=== PATIENT | male | born 1960 | race Caucasian/White ===

== ENCOUNTER 2019-12-09 04:55 | Inpatient (IN) | payer BC ==
[~2019-12-09] VITALS: Ht 177.8 cm; Wt 89.5 kg
[2019-12-09] MEDS ORDERED: ONDANSETRON HCL INJ 2MG/ML 2ML 2 MG/ML VIAL IV STA ×2 (04:59→19:54)
[2019-12-09] MEDS ORDERED: PANTOPRAZOLE 40 MG 10ML VIAL IV STA ×2 (04:59→06:56)
[2019-12-09] MEDS ORDERED: MORPHINE SULFATE 2 MG/ML SYR 1ML IV STA (04:59)
[2019-12-09] MEDS ORDERED: SODIUM CHLORIDE 0.9% 1000ML 1,000 ML IV ONE ×2 (05:00→06:15)
[2019-12-09] MEDS ORDERED: ASPIRIN 81 MG CHEW TAB PO ONE (05:00)
[2019-12-09 05:12] LABS: BASOPHILS # (AUTO) 0.1 (0.0-0.1); BASOPHILS % 0.5 % (0.0-1.0); EOSINOPHILS # (AUTO) 0.2 (0.0-0.4); EOSINOPHILS % 0.9 % (0.0-6.0); HEMATOCRIT 50.4 % (38.2-49.6); HEMOGLOBIN 17.7 g/dL (14.0-18.0); LYMPHOCYTES # (AUTO) 3.2 (1.0-3.2); LYMPHOCYTES % 18.5 % (18.0-39.1); MEAN CORPUSCULAR HEMOGLOBIN 31.3 pg (28-32); MEAN CORPUSCULAR HGB CONC 35.1 g/dL (31-35); NEUTROPHILS # (AUTO) 12.8 (2.1-6.9); NEUTROPHILS % 73.7 % (38.7-80.0); PLATELET COUNT 213 x10e3/uL (140-360); RED BLOOD COUNT 5.66 x10e6/uL (4.3-5.7)
[2019-12-09 05:40] LABS: ALBUMIN 4.3 g/dL (3.5-5.0); ALBUMIN/GLOBULIN RATIO 1.3 (0.8-2.0); ANION GAP 13.1 mmol/L (8-16); BILIRUBIN,URINE 1+ (NEGATIVE); CLARITY,URINE SL CLOUDY (CLEAR); COLOR,URINE YELLOW (YELLOW); CREATININE, SERUM 1.43 mg/dL (0.72-1.25); KETONES,URINE NEGATIVE (NEGATIVE); LEUKOCYTE ESTERASE ,URINE NEGATIVE (NEGATIVE); NITRITE,URINE NEGATIVE (NEGATIVE); POTASSIUM 4.1 mmol/L (3.5-5.1); PROTEIN,URINE DIPSTICK 2+ (NEGATIVE); URINE UROBILINOGEN 0.2 mg/dL (0.2 - 1)
[2019-12-09 05:44] LABS: AMYLASE 4112 U/L (25-125)
[2019-12-09 05:46] LABS: CREATINE KINASE MB 1.7 ng/mL (0-5.0)
[2019-12-09 05:50] LABS: BACTERIA,URINE MANY /HPF; EPITHELIAL CELLS,URINE RARE /LPF; RBC,URINE 0-5 /HPF (0-5)
[2019-12-09 05:51] LABS: MUCUS,URINE MANY (RARE)
[2019-12-09] MEDS ORDERED: HYDROMORPHONE 1MG/1ML INJ IV STA ×2 (06:07→19:54)
[2019-12-09] MEDS ORDERED: SODIUM CHLORIDE 0.9% 50ML 50 ML ONE (06:12)
[2019-12-09] MEDS ORDERED: IOPAMIDOL 370 MG/ML 200 ML INFUS..BTL INJ ONE (06:12)
[2019-12-09] MEDS ORDERED: SODIUM CHLORIDE 0.9% 1000ML 1,000 ML ONE (06:13)
--- NOTE | 2019-12-09 06:40 | Diagnostic Imaging Report ---
EXAM: CT Abdomen and Pelvis WITH contrast INDICATION: Abdominal pain, vomiting COMPARISON: None. TECHNIQUE: Abdomen and pelvis were scanned utilizing a multidetector helical scanner from the lung base to the pubic symphysis after administration of IV contrast. Coronal and sagittal reformations were obtained. Routine protocol was performed. Scan was performed when during portal venous phase. IV CONTRAST: 100 mL of Isovue 370 ORAL CONTRAST: None COMPLICATIONS: None RADIATION DOSE: Total DLP: 569 mGy*cm Estimated effective dose: (DLP x 0.015 x size factor) mSv CTDIvol has been reviewed. It is below the limits set by the Radiation Protocol Committee (RPC). Dose modulation, iterative reconstruction, and/or weight based adjustment of the mA/kV was utilized to reduce the radiation dose to as low as reasonably achievable. FINDINGS: LINES and TUBES: None. LOWER THORAX: Bibasilar atelectasis. HEPATOBILIARY: No focal hepatic lesions. No biliary ductal dilation. GALLBLADDER: No radio-opaque stones or sludge. No wall thickening. SPLEEN: No splenomegaly. PANCREAS: Mild peripancreatic fat stranding. No focal masses or ductal dilatation. ADRENALS: No adrenal nodules KIDNEYS/URETERS: Kidneys enhance symmetrically. No hydronephrosis. No solid mass lesions. Bilateral renal simple cysts, largest is in the left kidney, measures 7.8 cm. No stones. GI TRACT: No abnormal distention, wall thickening, or evidence of bowel obstruction. Appendix is normal. PELVIC ORGANS/BLADDER: Unremarkable. LYMPH NODES: No lymphadenopathy. VESSELS: Unremarkable. PERITONEUM / RETROPERITONEUM: Trace free fluid about the spleen and layering along the paracolic gutters. No free air. BONES: Bilateral inferior L4 pars defects with mild anterolisthesis of L4 on L5. SOFT TISSUES: Unremarkable. IMPRESSION: 1. Acute interstitial edematous pancreatitis. Trace free fluid about the spleen and layering along the paracolic gutters. 2. Colonic diverticulosis without diverticulitis. 3. Bilateral inferior L4 pars defects with mild anterolisthesis of L4 on L5. Signed by: Bubba Machado DO on 12/09/2019 6:36 AM
--- NOTE | 2019-12-09 07:04 | NUR ---
Report to Dick
--- OUTSIDE RECORDS SUMMARY | 2019-12-09 07:07 | XMS REPORT ---
Author Author [facility] Address Unknown Phone Unavailable Care Team Providers Care Communications Professional Name Role Phone Mat DONAHUE Unavailable Unavailable Problems This patient has no known problems. Allergies, Adverse Reactions, Alerts This patient has no known allergies or adverse reactions. Medications This patient has no known medications. Results Test Description Test Time Test Comments Text Results Atomic Results Result Comments CT ABDOMEN/PELVIS W 2019-12-09 06:31:00 [place] [address] Patient Name: KAYCE BROWN MR #: [id number] : 1960 Age/Sex: 59/M Req #: [id number] Adm Physician: Ordered by: GAYLE DONAHUE MD Report #: [id number] Location: ER Room/Bed: Procedure: [id number] CT/CT ABDOMEN/PELVIS W Exam Date: 12/09/19 Exam Time: 0600 REPORT STATUS: Signed EXAM: CT Abdomen and Pelvis WITH contrast INDICATION: Abdominal pain, vomiting COMPARISON: None. TECHNIQUE: Abdomen and pelvis were scanned utilizing a multidetector helical scanner from the lung base to the pubic symphysis after administration of IV contrast. Coronal and sagittal reformations were obtained. Routine protocol was performed. Scan was performed when during portal venous phase. IV CONTRAST: 100 mL of Isovue 370 ORAL CONTRAST: None COMPLICATIONS: None RADIATION DOSE: Total DLP: 569 mGy*cm Estimated effective dose: (DLP x 0.015 x size factor) mSv CTDIvol has been reviewed. It is below the limits set by the Radiation Protocol Committee (RPC). Dose modulation, iterative reconstruction, and/or weight based adjustment of the mA/kV was utilized to reduce the radiation dose to as low as reasonably achievable. FINDINGS: LINES and TUBES: None. LOWER THORAX: Bibasilar atelectasis. HEPATOBILIARY: No focal hepatic l esions. No biliary ductal dilation. GALLBLADDER: No radio-opaque stones or sludge. No wall thickening. SPLEEN: No splenomegaly. PANCREAS: Mild peripancreatic fat stranding. No focal masses or ductal dilatation. ADRENALS: No adrenal nodules KIDNEYS/URETERS: Kidneys enhance symmetrically. No hydronephrosis. No solid mass lesions. Bilateral renal simple cysts, largest is in the left kidney, measures 7.8 cm. No stones. GI TRACT: No abnormal distention, wall thickening, or evidence of bowel obstruction. Appendix is normal. PELVIC ORGANS/BLADDER: Unremarkable. LYMPH NODES: No lymphadenopathy. VESSELS: Unremarkable. PERITONEUM / RETROPERITONEUM: Trace free fluid about the spleen and layering along the paracolic gutters. No free air. BONES: Bilateral inferior L4 pars defects with mild anterolisthesis of L4 on L5. SOFT TISSUES: Unremarkable. IMPRESSION: 1. Acute interstitial edematous pancreatitis. Trace free fluid about the spleen and layering along the paracolic gutters. 2. Colonic diverticulosis without diverticulitis. 3. Bilateral inferior L4 pars defects with mild anterolisthesis of L4 on L5. Signed by: Bubba Machado DO on 12/09/2019 6:36 AM Dictated By: BUBBA MACHADO DO 5 Transcribed By: BRIGETTE on 12/09/19635 COPY TO: GAYLE DONAHUE MD
[2019-12-09 07:11] LABS: LIPASE 5465 U/L (8-78)
[2019-12-09 07:29] LABS: CHOL/HDL RATIO 5.7 (3.9-4.7)
[2019-12-09] MEDS: LACTATED RINGER'S 1,000 ML IV SCH ×6 (07:33→23:45)
[2019-12-09] MEDS: METRONIDAZOLE 500MG/NS 100ML 100 ML IV SCH ×4 (07:33→23:57)
[2019-12-09] MEDS ORDERED: MEROPENEM 1GM 100 ML IV SCH ×2 (08:00→11:30)
[2019-12-09 09:34] VITALS: BP 188/110
--- NOTE | 2019-12-09 09:58 | NUR ---
H&P cc: abdominal pain HPI: 59yoM, PCP ---, developed abdominal pain, found to have acute pancreatitis and UTI. Pt states only drinks alcohol on weekend. Imaging no gallstones by CT. PMH: HTN PSHx: none Allergies; see emr fh/Sh: ; no cigs; occ etoh meds; see MAR ROS: no f/c/s/SKINNER/cp/sob/skin rash/dizziness/leg edema/focal limb weakness v/s revd PE: tired appearing anicteric ns1s2 mod bs soft nd; epigastrium tender no e/t skin dry flat affect a&ox3; gonzalez labs/meds revd A/P: 59yoM Acute pancreatitis- IVF; IV abx; NPO. HTN- treat AKIRA- IVF UTI- IV merrem Diverticulosis- npo at this time Overweight- screen for DM BMI 28 Hyperglycemia- screen for DM HLD- will need treatment Prop: scd; pepcid dispo: f/u labs; IVF; NPO: Mariano Andres MD, PhD.
[2019-12-09 10:15] VITALS: BP 188/110
--- NOTE | 2019-12-09 10:15 | NUR ---
PT FROM ER. REPORT RECEIVED FROM ROCCO SOLIZ RN. PT AMBULATED TO BED WITH MINIMAL ASSISTANCE. ASSESSED AT THIS TIME. ABDOMEN TENDER TO TOUCH. BOWEL SOUNDS PRESENT ON AUSCULTATION. NO PARDO. IV TO LEFT AC INFUSING WELL, SET UP TO IV PUMP. PATIENT ASSESSMENT OTHERWISE UNREMARKABLE. PATIENT IN ORIENTATED TO ROOM AND SURROUNDINGS. INSTRUCTED TO CALL FOR ASSISTANCE IF NEEDS TO GET OUT OF BED. SEE CHART FOR DETAILS.
[2019-12-09] MEDS: HYDROMORPHONE 1MG/1ML INJ IV PRN ×2 (10:40→17:23)
[2019-12-09] MEDS: ONDANSETRON HCL INJ 2MG/ML 2ML 2 MG/ML VIAL IV PRN ×3 (10:59→22:37)
[2019-12-09 11:07] VITALS: BP 195/105
--- NOTE | 2019-12-09 14:30 | NUR ---
MESSAGE LEFT FOR DR. CARRERA ON VOICE MAIL REGARDING PATIENT PAIN MANAGEMENT AND NAUSEA. ALSO ELEVATED BP RELATED TO PAIN.
--- NOTE | 2019-12-09 16:44 | NUR ---
VOICE MESSAGE LEFT FOR DR CARRERA REGARDING PAIN MANAGEMENT AND NAUSEA AND ELEVATED BLOOD PRESSURE.
[2019-12-09 16:49] VITALS: BP 181/106
[2019-12-09] MEDS: FAMOTIDINE 20 MG/2 ML VIAL IV SCH (17:23)
[2019-12-09] MEDS ORDERED: HYDRALAZINE HCL 20 MG/ML VIAL IV STA (19:54)
[2019-12-09 20:00] VITALS: BP 199/115
[2019-12-09] MEDS ORDERED: METOCLOPRAMIDE HCL 10 MG/2ML VIAL IV ONE (20:00)
[2019-12-09] MEDS ORDERED: HYDROMORPHONE 1MG/1ML INJ IV PRN (20:00)
[2019-12-09 20:45] LABS: BASOPHILS % 0.2 % (0.0-1.0); EOSINOPHILS # (AUTO) 0.1 (0.0-0.4); EOSINOPHILS % 0.6 % (0.0-6.0); HEMATOCRIT 50.6 % (38.2-49.6); HEMOGLOBIN 17.4 g/dL (14.0-18.0); LYMPHOCYTES % 4.3 % (18.0-39.1); MEAN CORPUSCULAR HEMOGLOBIN 30.7 pg (28-32); MEAN CORPUSCULAR HGB CONC 34.4 g/dL (31-35); MEAN CORPUSCULAR VOLUME 89.4 fL (81-99); MONOCYTES # (AUTO) 1.1 (0.2-0.8); MONOCYTES % 4.8 % (4.4-11.3); NEUTROPHILS % 89.5 % (38.7-80.0); PLATELET COUNT 196 x10e3/uL (140-360); RED BLOOD COUNT 5.66 x10e6/uL (4.3-5.7); RED CELL DISTRIBUTION WIDTH 13.2 % (11.7-14.4)
--- NOTE | 2019-12-09 20:47 | NUR ---
Received report from nurse. Walking rounds completed.
[2019-12-09 21:05] LABS: ALANINE AMINOTRANSFERASE 25 IU/L (0-55); ALBUMIN 3.5 g/dL (3.5-5.0); ALBUMIN/GLOBULIN RATIO 1.2 (0.8-2.0); ALKALINE PHOSPHATASE 54 IU/L (40-150); ANION GAP 12.1 mmol/L (8-16); BLOOD UREA NITROGEN 17 mg/dL (7-26); BUN/CREATININE RATIO 14 (6-25); CALCIUM 8.4 mg/dL (8.4-10.2); CARBON DIOXIDE 23 mmol/L (22-29); CHLORIDE 110 mmol/L (98-107); CREATININE, SERUM 1.18 mg/dL (0.72-1.25); EST GLOMERULAR FILTRATION RATE > 60 ML/MIN (60-); GLUCOSE 164 mg/dL (74-118); POTASSIUM 4.1 mmol/L (3.5-5.1); SODIUM 141 mmol/L (136-145)
[2019-12-09 21:29] LABS: AMYLASE 625 U/L (25-125); LIPASE 838 U/L (8-78)
[2019-12-09] MEDS: HYDROMORPHONE 2MG/ML 2 MG/ML ML IV PRN (22:43)
[2019-12-09] MEDS ORDERED: LACTATED RINGER'S 1,000 ML IV STA (22:43)
[2019-12-09] MEDS ORDERED: LACTATED RINGER'S 1,000 ML IV SCH (22:50)
[2019-12-09] MEDS: METOCLOPRAMIDE HCL 10 MG/2ML VIAL IV SCH (23:57)
[2019-12-10] VITALS (7 sets, daily range): BP systolic 125–152; BP diastolic 77–106
--- NOTE | 2019-12-10 | NUR ---
Dr Klein on the floor to see patient. Orders received and completed. Patient received 2L lactated ringers. Patient voided 150cc. is aware.
[2019-12-10] MEDS: LACTATED RINGER'S 1,000 ML IV SCH ×7 (00:45→22:58)
[2019-12-10 00:52] LABS: CLARITY,URINE CLEAR (CLEAR); COLOR,URINE AMBER (YELLOW)
[2019-12-10 00:53] LABS: BACTERIA,URINE FEW /HPF; BILIRUBIN,URINE NEGATIVE (NEGATIVE); EPITHELIAL CELLS,URINE RARE /LPF; KETONES,URINE NEGATIVE (NEGATIVE); LEUKOCYTE ESTERASE ,URINE NEGATIVE (NEGATIVE); NITRITE,URINE NEGATIVE (NEGATIVE); PROTEIN,URINE DIPSTICK 1+ (NEGATIVE); URINE UROBILINOGEN 0.2 mg/dL (0.2 - 1); WBC,URINE (MAN) 0-5 /HPF (0-5)
[2019-12-10] MEDS: HYDROMORPHONE 2MG/ML 2 MG/ML ML IV PRN ×6 (01:00→22:58)
[2019-12-10] MEDS: METRONIDAZOLE 500MG/NS 100ML 100 ML IV SCH ×2 (05:22→12:00)
[2019-12-10] MEDS: METOCLOPRAMIDE HCL 10 MG/2ML VIAL IV SCH ×4 (05:23→23:14)
[2019-12-10] MEDS: MEROPENEM 1GM 100 ML IV SCH ×3 (05:23→22:05)
[2019-12-10 05:24] LABS: BASOPHILS % 0.1 % (0.0-1.0); EOSINOPHILS # (AUTO) 0.1 (0.0-0.4); EOSINOPHILS % 0.4 % (0.0-6.0); HEMOGLOBIN 16.5 g/dL (14.0-18.0); LYMPHOCYTES # (AUTO) 1.3 (1.0-3.2); LYMPHOCYTES % 4.6 % (18.0-39.1); MEAN CORPUSCULAR HEMOGLOBIN 30.3 pg (28-32); MEAN CORPUSCULAR HGB CONC 33.7 g/dL (31-35); MEAN CORPUSCULAR VOLUME 90.1 fL (81-99); MONOCYTES # (AUTO) 1.8 (0.2-0.8); MONOCYTES % 6.3 % (4.4-11.3); NEUTROPHILS # (AUTO) 24.6 (2.1-6.9); NEUTROPHILS % 88.1 % (38.7-80.0); PLATELET COUNT 171 x10e3/uL (140-360); RED BLOOD COUNT 5.44 x10e6/uL (4.3-5.7); RED CELL DISTRIBUTION WIDTH 13.3 % (11.7-14.4)
[2019-12-10] MEDS: ONDANSETRON HCL INJ 2MG/ML 2ML 2 MG/ML VIAL IV PRN ×4 (05:27→19:00)
[2019-12-10 05:55] LABS: ALBUMIN 3.3 g/dL (3.5-5.0); ALBUMIN/GLOBULIN RATIO 1.1 (0.8-2.0); CALCIUM 8.1 mg/dL (8.4-10.2); CREATININE, SERUM 1.23 mg/dL (0.72-1.25)
--- NOTE | 2019-12-10 06:16 | NUR ---
S/W Dr Andres informed that patient had not voided but 150cc in 12 hour. Will do a bladder scan. And possible ayala.
--- NOTE | 2019-12-10 06:34 | NUR ---
Informed Dr Andres of bladder scan at 442. Amylase and lipase. Waiting for response.
--- NOTE | 2019-12-10 07:10 | NUR ---
RCD PT AT BED PT IS ALERT AND ORIENTED PT RESTING ON BED NO SIGNS OF ANY DISTRESS NOTED IV PATENT PT NPO PT C/O NOT ABLE TO PASS URINE SAW THE TELEPHONE MESSAGE FROM DR CARRERA TO DO STRAIGHT CATH FROM THE NIGHT NURSE BED LOW AND LOCKED CALL LIGHT IN REACH
--- NOTE | 2019-12-10 07:30 | NUR ---
STRAIGHT CATH DONE AND REMOVED 500 ML OF CONCENTRATED URINE
[2019-12-10] MEDS: FAMOTIDINE 20 MG/2 ML VIAL IV SCH ×2 (08:08→17:00)
--- NOTE | 2019-12-10 08:50 | NUR ---
GOT NEW ORDERS FROM DR HORN BY TELEPHONE
[2019-12-10] MEDS ORDERED: LACTATED RINGER'S 1,000 ML IV NR (09:00)
--- NOTE | 2019-12-10 10:00 | NUR ---
AC TO DR BLOOD PT DONT NEED REPEATED CT ABDOMEN AND PELVIS PAGED AND NOTIFIED DR Otilio HORN GOT THE ORDER TO CANCEL THE CT ORDER
--- NOTE | 2019-12-10 11:28 | Diagnostic Imaging Report ---
EXAM: Right upper quadrant abdominal ultrasound INDICATION: Abdominal pain, pancreatitis. COMPARISON: CT Abdomen/Pelvis 12/09/19. TECHNIQUE: Transverse and longitudinal images of the right upper quadrant abdomen were obtained FINDINGS: Exam is somewhat limited by overlying bowel gas. Liver: Size: 15.8 cm in the right midclavicular line, normal Appearance: Left hepatic lobe is obscured by overlying bowel gas. Normal echogenicity, smooth contour. Mass: No focal masses Gallbladder: No distention, pericholecystic fluid, stone, or reported sonographic Self's sign. Gallbladder wall measures 0.27 cm. Bile Ducts: Intrahepatic Ducts: No dilatation Extrahepatic Ducts: Common bile duct measures 0.2 cm, no dilatation Pancreas: Obscured by overlying bowel gas. Kidney: The right kidney measures 12.1 cm without evidence of hydronephrosis or stone. Vessels: Aorta: Obscured by overlying bowel gas. Inferior Vena Cava: Obscured by overlying bowel gas. Main Portal Vein: 1.1 cm, normal size with hepatopetal flow. Free Fluid: No evidence of ascites. IMPRESSION: Exam is somewhat limited by overlying bowel gas. The pancreas is not visualized. Gallbladder sludge without evidence of cholecystitis. No CBD dilatation. Signed by: Dr. Aleksandr Gonsalez MD on 12/10/2019 11:24 AM
--- NOTE | 2019-12-10 11:51 | Consultation ---
DATE OF CONSULTATION: 12/10/2019 REFERRING PHYSICIAN: Dr. Mariano Andres. HISTORY OF PRESENT ILLNESS: The patient is a 59-year-old male presents with about 3-day history of epigastric abdominal pain, he has associated nausea and vomiting. He has not had similar pains in the past. The pain has gotten progressively worse. He came to the emergency room where evaluation with CT of the abdomen and pelvis revealed findings suggestive of pancreatitis, is also found to have elevated amylase and lipase. The patient denies drinking alcohol except for occasionally socially. His triglyceride levels were normal. CT of the abdomen did not reveal any gallstones. PAST MEDICAL HISTORY: Otherwise unremarkable. He denies any chronic medical problems. He has not had previous surgeries. MEDICATIONS: There were no current medications. ALLERGIES: NO KNOWN ALLERGIES. FAMILY HISTORY: Noncontributory. SOCIAL HISTORY: The patient does not smoke cigarettes, only occasionally drinks alcohol socially. REVIEW OF SYSTEMS: As stated above. He has had no fever, no weight loss. PHYSICAL EXAMINATION: GENERAL: The patient is awake and alert, in no distress. VITAL SIGNS: Revealed mild tachycardia, heart rate around 110, but now it is down to 98. He is afebrile. Blood pressure is normal. HEENT: No scleral icterus. NECK: No masses. LUNGS: Equal breath sounds, clear bilaterally. CARDIAC: regular rate and rhythm with no murmur. ABDOMEN: Tender in the epigastrium. There is moderate distention. There is no mass. There are no definite signs of peritonitis. EXTREMITIES: No edema. Pulses are palpable NEUROLOGIC: Intact. LABORATORY DATA: White blood cell count on arrival 17.3 today is 27.9, hemoglobin 16.5, hematocrit 49, which is down. There is a left shift of differential. Chemistries revealed normal BUN and creatinine with elevated amylase and lipase. Bilirubin is slightly elevated. ASSESSMENT: A 59-year-old male with acute pancreatitis, etiology of which is not clear. Plan to evaluate further with ultrasound of his gallbladder to rule out this as a source of his pancreatitis. At this point, we recommend continue the patient n.p.o. on IV fluids, antibiotics as have been ordered. There are no findings that would warrant surgical intervention at this time. Thank you for asking me to see Mr. Garcia. MD RUT Richardson/TRACEYL /[id number]
--- NOTE | 2019-12-10 15:09 | NUR ---
LIVES INDEPENDENTLY AT HOME WITH HIS EMERGENCY CONTACT: LAMIN HENDRICKS [phone] PCP: DR. CASI PORTER EMPLOYMENT STATUS: EMPLOYED HOME HEALTH: NONE DME: NONE DC PLAN: RETURN HOME AND TO WORK
--- NOTE | 2019-12-10 16:00 | NUR ---
O2 SATURATION 89% STARTED 2 L BY NC O2 93%
--- NOTE | 2019-12-10 16:06 | NUR ---
The patient is a 59-year-old male presents with about 3-day history of epigastric abdominal pain, he has associated nausea and vomiting. He has not had similar pains in the past. The pain has gotten progressively worse. He came to the emergency room where evaluation with CT of the abdomen and pelvis revealed findings suggestive of pancreatitis, is also found to have elevated amylase and lipase. The patient denies drinking alcohol except for occasionally socially. His triglyceride levels were normal. CT of the abdomen did not reveal any gallstones. [id number]
--- NOTE | 2019-12-10 16:56 | Consultation ---
DATE OF CONSULTATION: HISTORY OF PRESENT ILLNESS: Mr. Garcia is a very pleasant 59-year-old white male, no past medical history, comes in with abdominal pain for 3 days, epigastric pain with nausea and vomiting, and came to emergency room. CAT scan showed pancreatitis. The patient is being admitted. Currently lying in bed with no short of breath. PAST MEDICAL HISTORY: Denies. PAST SURGICAL HISTORY: Denies. ALLERGIES: NKDA. SOCIAL HISTORY: There is no smoking, drug abuse, or alcohol abuse. FAMILY HISTORY: Unremarkable. LABORATORY DATA: White count 27.9 and hemoglobin of 16. Sodium 140, potassium 4.0 with creatinine 1.24 with liver enzyme AST 20. His lipase is 725. His CT of the abdomen and pelvis done and showed pancreatitis, acute. MEDICATION LIST: He is currently on meropenem. PHYSICAL EXAMINATION: GENERAL: He is alert and oriented. VITAL SIGNS: Stable, afebrile. HEENT: Not icteric. NECK: Supple. CHEST: Clear. HEART: S1, S2. ABDOMEN: Soft. IMPRESSION: Severe pancreatitis, currently on meropenem. Discontinue Flagyl. Recheck CBC. Recheck Chem panel. N.p.o., IV fluids, supportive care. We will follow further recommendations depending on clinical progress. MD VIKTOR Serrano/MODMat /[id number]
--- NOTE | 2019-12-10 18:15 | NUR ---
PATIENT NOT ABLE TO PASS URINATE AFTER 1300 BLADDER SCAN DONE 200 ML URINE IN THE BLADDER PAGED AND NOTIFIED DR CARRERA GOT THE ORDER TO DO PARDO WE 2 NURSES TRIED WE CANNOT MAKE IT
--- NOTE | 2019-12-10 19:00 | NUR ---
PT RESTING ON BED BED SIDE REPORT GIVE TO ONCOMING NURSE
--- NOTE | 2019-12-10 19:00 | NUR ---
STRAIGHT CATH DONE AND REMOVED 350 ML URINE
--- NOTE | 2019-12-10 19:10 | NUR ---
PAGED DR CARRERA AND NOTIFIED WE ARE NOT ABLE TO INSERT PARDO GOT THE ORDER TO STRAIGHT CATH Q8H
--- NOTE | 2019-12-10 20:30 | NUR ---
DR HORN PRESENT AT BEDSIDE, VOICES CONCERN ABOUT PATIENTS URINE OUTPUT QUANTITY, ORDER FOR 2 LITERS LR BOLUS AT THIS TIME. PATIENT VERBALIZES HE FEELS EDEMATOUS. AWARE.
[2019-12-10] MEDS ORDERED: LACTATED RINGER'S 1,000 ML IV ONE (20:45)
[2019-12-11] VITALS (10 sets, daily range): BP systolic 135–170; BP diastolic 76–95
--- NOTE | 2019-12-11 01:20 | NUR ---
0030 PATIENT BEGAN C/O URGE TO URINATE, ONLY ABLE TO VOID APPROX 15 ML DARK YELLOW URINE PER URINAL, BLADDER SCAN REVEALED 289 ML OF URINE, PATIENT APPREHENSIVE TO CONTINUE ST CATH Q8 BUT EXTREMELY UNCOMFORTABLE, DISCUSSED ATTEMPTING PARDO CATH AGAIN AND PATIENT AGREED, ABLE TO PLACE 16 FR PARDO X1 ATTEMPT USING STERILE TECHNIQUE, 350 ML VERY DARK URINE IMMEDIATELY DRAINED. PATIENT VERBALIZED RELIEF AND TOLERATED PROCEDURE WELL.
[2019-12-11] MEDS: LACTATED RINGER'S 1,000 ML IV SCH ×6 (03:12→23:45)
--- NOTE | 2019-12-11 04:00 | NUR ---
PATIENT C/O SEVERE PAIN TO BACK, STATES HE HAS CHRONIC BACK PAIN, UP TO CHAIR AT BEDSIDE PER PATIENT REQUEST, EDUCATED PATIENT ON FALL RISK AND TO CALL STAFF FOR ASSISTANCE, PATIENT VERBALIZED UNDERSTANDING
[2019-12-11] MEDS: HYDROMORPHONE 2MG/ML 2 MG/ML ML IV PRN ×4 (04:01→19:23)
[2019-12-11] MEDS: ONDANSETRON HCL INJ 2MG/ML 2ML 2 MG/ML VIAL IV PRN (04:01)
--- NOTE | 2019-12-11 04:42 | NUR ---
IM- progress note O/N no events ROS: no f/c/s/SKINNER/cp/sob/skin rash/dizziness/leg edema/focal limb weakness v/s revd PE: tired appearing anicteric ns1s2 mod bs soft nd; epigastrium tender no e/t skin dry flat affect a&ox3; gonzalez labs/meds revd A/P: 59yoM Acute pancreatitis- IVF; IV abx; NPO. HTN- treat AKIRA- IVF UTI- IV merrem Diverticulosis- npo at this time Overweight- screen for DM BMI 28 Hyperglycemia- screen for DM HLD- will need treatment Prop: scd; pepcid dispo: f/u labs; IVF; NPO: 4-19 f/u labs; Mariano Andres MD, PhD.
[2019-12-11] MEDS: MEROPENEM 1GM 100 ML IV SCH ×3 (05:14→22:51)
[2019-12-11] MEDS: METOCLOPRAMIDE HCL 10 MG/2ML VIAL IV SCH ×4 (05:14→23:56)
[2019-12-11 06:13] LABS: EOSINOPHILS # (AUTO) 0.1 (0.0-0.4); HEMATOCRIT 43.2 % (38.2-49.6); HEMOGLOBIN 14.1 g/dL (14.0-18.0); LYMPHOCYTES # (AUTO) 0.8 (1.0-3.2); MEAN CORPUSCULAR HEMOGLOBIN 30.1 pg (28-32); MEAN CORPUSCULAR HGB CONC 32.6 g/dL (31-35); MEAN CORPUSCULAR VOLUME 92.3 fL (81-99); MONOCYTES # (AUTO) 1.3 (0.2-0.8); NEUTROPHILS # (AUTO) 18.9 (2.1-6.9); PLATELET COUNT 132 x10e3/uL (140-360); RED BLOOD COUNT 4.68 x10e6/uL (4.3-5.7); RED CELL DISTRIBUTION WIDTH 13.5 % (11.7-14.4)
[2019-12-11 06:47] LABS: ALANINE AMINOTRANSFERASE 18 IU/L (0-55); ALBUMIN 2.6 g/dL (3.5-5.0); ALBUMIN/GLOBULIN RATIO 0.9 (0.8-2.0); ALKALINE PHOSPHATASE 37 IU/L (40-150); BLOOD UREA NITROGEN 22 mg/dL (7-26); BUN/CREATININE RATIO 21 (6-25); CALCIUM 7.4 mg/dL (8.4-10.2); CARBON DIOXIDE 27 mmol/L (22-29); CHLORIDE 107 mmol/L (98-107); CREATININE, SERUM 1.05 mg/dL (0.72-1.25); EST GLOMERULAR FILTRATION RATE > 60 ML/MIN (60-); GLUCOSE 121 mg/dL (74-118); LIPASE 500 U/L (8-78); SODIUM 140 mmol/L (136-145)
--- NOTE | 2019-12-11 07:00 | NUR ---
BEDSIDE SHIFT REPORT FROM INSURANCE RISK ANALYST NURSE. PT DENIES NEEDS AT THIS TIME.
[2019-12-11] MEDS: FAMOTIDINE 20 MG/2 ML VIAL IV SCH ×2 (07:59→17:27)
[2019-12-11] MEDS: LIDOCAINE 4% PATCH TP SCH (08:00)
[2019-12-11] MEDS: LABETALOL HCL 5 MG/ML 20ML VIAL IV PRN (08:00)
--- NOTE | 2019-12-11 19:10 | NUR ---
Bedside report and walking rounds completed with off going nurse. Patient in chair with call light within reach. No issues or concerns noted. Will continue to monitor.
[2019-12-12] VITALS (8 sets, daily range): BP systolic 134–182; BP diastolic 84–97
[2019-12-12] MEDS: HYDROMORPHONE 2MG/ML 2 MG/ML ML IV PRN ×6 (00:15→20:35)
[2019-12-12] MEDS: LACTATED RINGER'S 1,000 ML IV SCH ×6 (03:37→21:00)
--- NOTE | 2019-12-12 05:21 | NUR ---
IM- progress note O/N no events ROS: no f/c/s/SKINNER/cp/sob/skin rash/dizziness/leg edema/focal limb weakness v/s revd PE: tired appearing anicteric ns1s2 mod bs soft nd; epigastrium tender no e/t skin dry flat affect a&ox3; gonzalez labs/meds revd A/P: 59yoM Acute pancreatitis- IVF; IV abx; NPO. HTN- treat AKIRA- IVF UTI- IV merrem Diverticulosis- npo at this time Overweight- screen for DM BMI 28 Hyperglycemia- screen for DM HLD- will need treatment Prop: scd; pepcid dispo: f/u labs; IVF; NPO: 4-19 f/u labs; 4-20 leukocytosis improving; lipase improving; check labs today; GB sludge, but no CBD dilatation. pt is improving. Mariano Andres MD, PhD.
[2019-12-12] MEDS: MEROPENEM 1GM 100 ML IV SCH ×3 (05:41→22:27)
[2019-12-12 05:42] LABS: BASOPHILS % 0.2 % (0.0-1.0); EOSINOPHILS # (AUTO) 0.1 (0.0-0.4); EOSINOPHILS % 0.8 % (0.0-6.0); HEMATOCRIT 41.1 % (38.2-49.6); HEMOGLOBIN 13.5 g/dL (14.0-18.0); LYMPHOCYTES # (AUTO) 0.8 (1.0-3.2); MEAN CORPUSCULAR HEMOGLOBIN 30.3 pg (28-32); MEAN CORPUSCULAR HGB CONC 32.8 g/dL (31-35); MEAN CORPUSCULAR VOLUME 92.2 fL (81-99); MONOCYTES # (AUTO) 1.1 (0.2-0.8); MONOCYTES % 7.1 % (4.4-11.3); NEUTROPHILS # (AUTO) 13.3 (2.1-6.9); NEUTROPHILS % 86.1 % (38.7-80.0); PLATELET COUNT 129 x10e3/uL (140-360); RED BLOOD COUNT 4.46 x10e6/uL (4.3-5.7); RED CELL DISTRIBUTION WIDTH 13.2 % (11.7-14.4)
[2019-12-12] MEDS: METOCLOPRAMIDE HCL 10 MG/2ML VIAL IV SCH ×4 (05:42→23:13)
--- NOTE | 2019-12-12 07:10 | NUR ---
Bedside report and walking rounds completed with oncoming nurse. Patient in chair with call light within reach. No issues or concerns noted. Will continue to monitor.
[2019-12-12 08:02] LABS: BAND NEUTROPHILS % (MANUAL) 3 %; LYMPHOCYTES % (MANUAL) 4 % (19-48); MONOCYTES % (MANUAL) 4 % (3.4-9.0); NEUTROPHILS % (MANUAL) 89 % (40-74)
[2019-12-12 08:03] LABS: PLATELET ESTIMATE SLIGHTLY DECREASED; PLATELET MORPHOLOGY COMMENT RARE EDTA CLUMPING; RBC MORPHOLOGY COMMENT NORMAL
[2019-12-12] MEDS: ONDANSETRON HCL INJ 2MG/ML 2ML 2 MG/ML VIAL IV PRN (08:44)
--- NOTE | 2019-12-12 10:12 | Progress Note ---
DATE: SUBJECTIVE: Mr. Garcia is a pleasant 59-year-old gentleman who has a primary diagnosis of acute pancreatitis. Currently comfortable in bed, no acute distress. REVIEW OF SYSTEMS: Still abdominal discomfort. No nausea. No vomiting. No fever. No chills. No chest pain. No shortness of breath. OBJECTIVE: VITAL SIGNS: Blood pressure 170/84, temp is 98.1, pulse is 104, respirations 24. GENERAL: Alert and oriented, comfortable in bed. No acute distress. CV: S1, S2. CHEST: Equal expansion. Clear to auscultation. ABDOMEN: Soft and discomfort mostly in the left upper abdomen. HEENT: Moist. No pallor. No JVD. EXTREMITIES: Moves all. No edema. MEDICATIONS: Medication list reviewed and as far as Infectious Disease point of view, the patient is on meropenem. LABORATORY STUDIES: White blood cells 15.44, improved from 21.34. Platelet 129, hemoglobin 13.5. No BMP from today. Microbiology; blood culture and urine culture on 12/09/2019 negative so far. Imaging, he had a gallbladder ultrasound, which showed exam was somewhat limited due to overlying bowel gas. The pancreas is not visualized. The gallbladder sludge without evidence of cholecystitis. No common bile duct dilation. ASSESSMENT AND PLAN: 1. Acute pancreatitis. 2. Leukocytosis, improved. 3. Abdominal pain, improved. The pain is 4/10. Pain management per others. 4. Lipase has improved to 155 today. 5. Fever resolved. 6. Continue to monitor the patient clinically and follow with the labs. Discussed with Dr. Aguero in detail. Please refer to the chart for more information. Dictated by Jermaine Ferguson PA-C (Al) Bishop Aguero MD /MODL /[id number]
[2019-12-12] MEDS: LIDOCAINE 4% PATCH TP SCH (10:38)
[2019-12-12] MEDS: FAMOTIDINE 20 MG/2 ML VIAL IV SCH ×2 (10:38→17:57)
--- NOTE | 2019-12-12 13:35 | NUR ---
Pt sleeping soundly and no family present. Transport Manager left a card describing availability of gas furnace installer and instructions on how to contact a gas furnace installer. [employer] Transport Manager Spiritual Care Department O: [phone]
[2019-12-13] VITALS (8 sets, daily range): BP systolic 167–194; BP diastolic 92–99
[2019-12-13] MEDS ORDERED: BISACODYL 10 MG SUPP PR ONE
--- NOTE | 2019-12-13 00:23 | NUR ---
Patient requesting to sleep and requesting suppositories in morning. Dr Klein on unit and verbalizes okay to wait till am to do suppositories. Updated patient.
[2019-12-13] MEDS: HYDROMORPHONE 2MG/ML 2 MG/ML ML IV PRN ×7 (00:35→21:35)
[2019-12-13] MEDS: LACTATED RINGER'S 1,000 ML IV SCH ×5 (04:30→21:51)
[2019-12-13] MEDS: LABETALOL HCL 5 MG/ML 20ML VIAL IV PRN ×2 (04:49→13:25)
[2019-12-13 05:17] LABS: BASOPHILS % 0.2 % (0.0-1.0); EOSINOPHILS % 0.3 % (0.0-6.0); HEMATOCRIT 36.8 % (38.2-49.6); HEMOGLOBIN 12.4 g/dL (14.0-18.0); LYMPHOCYTES # (AUTO) 0.8 (1.0-3.2); LYMPHOCYTES % 5.9 % (18.0-39.1); MEAN CORPUSCULAR HEMOGLOBIN 30.4 pg (28-32); MEAN CORPUSCULAR HGB CONC 33.7 g/dL (31-35); MEAN CORPUSCULAR VOLUME 90.2 fL (81-99); MONOCYTES # (AUTO) 1.2 (0.2-0.8); MONOCYTES % 8.8 % (4.4-11.3); NEUTROPHILS # (AUTO) 11.3 (2.1-6.9); NEUTROPHILS % 84.2 % (38.7-80.0); PLATELET COUNT 142 x10e3/uL (140-360); RED BLOOD COUNT 4.08 x10e6/uL (4.3-5.7); RED CELL DISTRIBUTION WIDTH 13.1 % (11.7-14.4)
[2019-12-13 05:33] LABS: ANION GAP 8.5 mmol/L (8-16); BLOOD UREA NITROGEN 16 mg/dL (7-26); BUN/CREATININE RATIO 22 (6-25); CALCIUM 7.2 mg/dL (8.4-10.2); CARBON DIOXIDE 28 mmol/L (22-29); CHLORIDE 110 mmol/L (98-107); CREATININE, SERUM 0.74 mg/dL (0.72-1.25); EST GLOMERULAR FILTRATION RATE > 60 ML/MIN (60-); GLUCOSE 105 mg/dL (74-118); POTASSIUM 3.5 mmol/L (3.5-5.1); SODIUM 143 mmol/L (136-145)
--- NOTE | 2019-12-13 06:17 | NUR ---
IM- progress note O/N no events ROS: no f/c/s/SKINNER/cp/sob/skin rash/dizziness/leg edema/focal limb weakness v/s revd PE: tired appearing anicteric ns1s2 mod bs soft nd; epigastrium tender no e/t skin dry flat affect a&ox3; gonzalez labs/meds revd A/P: 59yoM Acute pancreatitis- IVF; IV abx; NPO. HTN- treat AKIRA- IVF UTI- IV merrem Diverticulosis- npo at this time Overweight- screen for DM BMI 28 Hyperglycemia- screen for DM HLD- will need treatment Prop: scd; pepcid dispo: f/u labs; IVF; NPO: 4-19 f/u labs; 4-20 leukocytosis improving; lipase improving; check labs today; GB sludge, but no CBD dilatation. pt is improving. 4-21 lipase improving; WBC improving; pt feeling better; diet per GI; pt does Not want surgery at this time. Mariano Andres MD, PhD.
[2019-12-13] MEDS: METOCLOPRAMIDE HCL 10 MG/2ML VIAL IV SCH ×3 (06:31→18:09)
[2019-12-13] MEDS: MEROPENEM 1GM 100 ML IV SCH ×3 (06:32→21:18)
--- NOTE | 2019-12-13 07:10 | NUR ---
Bedside report and walking rounds completed with oncoming nurse. Patient in bedside chair with call light within reach. No issues or concerns noted.
[2019-12-13] MEDS: ONDANSETRON HCL INJ 2MG/ML 2ML 2 MG/ML VIAL IV PRN ×2 (08:35→21:34)
[2019-12-13] MEDS: LIDOCAINE 4% PATCH TP SCH (08:41)
[2019-12-13] MEDS: FAMOTIDINE 20 MG/2 ML VIAL IV SCH ×2 (08:41→17:18)
[2019-12-13] MEDS: TAMSULOSIN HCL 0.4 MG CAP PO SCH ×2 (08:41→17:18)
[2019-12-13] MEDS: FUROSEMIDE INJ 10 MG/ML 2 ML VIAL IV SCH ×2 (09:20→17:18)
--- NOTE | 2019-12-13 10:16 | Progress Note ---
DATE: SUBJECTIVE: Currently comfortable in chair. No acute distress, telling me that he is about to start a liquid diet. The patient was seen by General Surgery earlier this morning. REVIEW OF SYSTEMS: Abdominal pain has significant improvement. Remains with chronic back pain. No nausea. No vomiting. No fever. No chills. No chest pain. No shortness of breath. No headache. No dysuria. PHYSICAL EXAMINATION: VITAL SIGNS: Temperature 98.6, pulse is 80, respirations 16, and blood pressure 174/98. GENERAL: Alert and oriented x3. No acute distress. CV: S1 and S2. CHEST: Equal expansion. Clear to auscultation. No acute distress. ABDOMEN: Soft. No tenderness. Obese patient. HEENT: Moist. No pallor. No JVD. MEDICATIONS: Medication list reviewed and as far as Infectious Disease point of view, the patient is on Merrem. LABORATORY STUDIES: White blood cells 13.43, improved from 15.44, hemoglobin 12.4, and platelet 142. Sodium 143, potassium 3.5, and creatinine 0.74. MICROBIOLOGY: Blood culture and urine culture from 12/08, negative so far. RADIOLOGY: No new radiology studies available. Had a gallbladder ultrasound done on 12/10/2019, showing gallbladder sludge without evidence of a cholecystitis and no common bile duct dilation. ASSESSMENT AND PLAN: 1. Acute cholecystitis. Surgery on-board. Pain has improved. His lipase is down to 93 today. Cholecystectomy was offered by General Surgery, however, the patient wishes no surgical procedure at this time and likes to defer any kind of surgery. 2. Leukocytosis, improved. 3. Lipase gradually improving as mentioned above. 4. Fever, resolved. 5. Abdominal pain, significant improvement. 6. This case was discussed with Dr. Aguero. 7. Please refer to chart for more information. Discussed with the nurse as well. Dictated by Jermaine Ferguson PA-C (Al) Bishop Aguero MD /MODL /[id number]
--- NOTE | 2019-12-13 15:10 | Diagnostic Imaging Report ---
CT of the abdomen and pelvis History: Pancreatitis Comparison: 12/09/2019 Technique: Multidetector CT scanning of the abdomen and pelvis was performed from the level of the lung bases to the inferior pubic ramus, with IV contrast DOSE REDUCTION: The examination was performed according to departmental dose-optimization program which includes automated exposure control, adjustment of the mA and/or kV according to patient size and/or use of iterative reconstruction technique. Discussion: There are small bilateral pleural effusions, right greater than left with associated bibasilar atelectasis. No focal hepatic lesions are identified. The gallbladder is present nondistended. There is no intrahepatic or extrahepatic biliary dilatation. The spleen is within normal limits. The bilateral adrenal glands are unremarkable. The pancreatic parenchyma homogeneously enhances and is edematous. There is no evidence of pancreatic parenchymal necrosis or hemorrhage. The pancreatic duct is nondilated. There has been a slight interval increase in the amount of surrounding inflammation and chronic peripancreatic fluid. No loculated fluid collections are identified. There is no evidence of pseudocyst formation. The kidneys are normal in size and enhance symmetrically. Bilateral renal cysts are present. The stomach, small, and large bowel are nondistended. There is no evidence of obstruction. No bowel wall thickening is appreciated. The urinary bladder is within normal limits. There is no free intraperitoneal air. The abdominal aorta is of normal course and caliber. No acute osseous abnormalities. IMPRESSION: Acute pancreatitis with a slight interval increase in the amount of peripancreatic inflammatory stranding and fluid. No evidence of loculated/drainable fluid collection. No evidence of pancreatic parenchymal necrosis or hemorrhage. Signed by: Gentry Sequeira MD on 12/13/2019 3:07 PM
--- NOTE | 2019-12-13 16:01 | NUR ---
Did read back CT Abdomen result to Dr Otilio Klein, he said still keep the patient on NPO, Decrease fluid rate to 125cc/hr, he will come and see patient oscar, informed to patient
[2019-12-13] MEDS ORDERED: SODIUM CHLORIDE 0.9% 50ML 50 ML ONE (17:27)
[2019-12-13] MEDS ORDERED: IOPAMIDOL 370 MG/ML 200 ML INFUS..BTL INJ ONE (17:28)
--- NOTE | 2019-12-13 22:14 | NUR ---
Assessment done.no resp.distress.pain medication given.bp rechecked 162/92 mmof hg.bed locked and in lowest position.phone and call light within reach.instructed to call for assistance as needed.stable condition.on npo.
[2019-12-14] VITALS (7 sets, daily range): BP systolic 171–197; BP diastolic 96–111
[2019-12-14] MEDS: METOCLOPRAMIDE HCL 10 MG/2ML VIAL IV SCH ×5 (00:10→23:33)
[2019-12-14] MEDS: LABETALOL HCL 5 MG/ML 20ML VIAL IV PRN ×2 (01:36→19:36)
--- NOTE | 2019-12-14 01:40 | NUR ---
BP NOTED 180/97 .LABATELOL 5MG1V GIVEN.
[2019-12-14] MEDS: HYDROMORPHONE 2MG/ML 2 MG/ML ML IV PRN ×6 (02:02→23:33)
--- NOTE | 2019-12-14 04:53 | NUR ---
WAS IN THE UNIT.ORDERED TO DECREASE IV FLUID 20 ML/HR.SPOKE TO OF PATIENT.STABLE CONDITION.
[2019-12-14 05:34] LABS: BASOPHILS % 0.3 % (0.0-1.0); EOSINOPHILS # (AUTO) 0.1 (0.0-0.4); EOSINOPHILS % 0.8 % (0.0-6.0); HEMOGLOBIN 12.2 g/dL (14.0-18.0); LYMPHOCYTES % 7.8 % (18.0-39.1); MEAN CORPUSCULAR HEMOGLOBIN 30.3 pg (28-32); MEAN CORPUSCULAR HGB CONC 33.9 g/dL (31-35); MEAN CORPUSCULAR VOLUME 89.3 fL (81-99); MONOCYTES # (AUTO) 0.9 (0.2-0.8); MONOCYTES % 7.2 % (4.4-11.3); NEUTROPHILS # (AUTO) 10.2 (2.1-6.9); NEUTROPHILS % 82.8 % (38.7-80.0); PLATELET COUNT 154 x10e3/uL (140-360); RED BLOOD COUNT 4.03 x10e6/uL (4.3-5.7); RED CELL DISTRIBUTION WIDTH 13.1 % (11.7-14.4)
[2019-12-14] MEDS: LACTATED RINGER'S 1,000 ML IV SCH (05:51)
[2019-12-14 06:00] LABS: AMYLASE 73 U/L (25-125); LIPASE 78 U/L (8-78)
[2019-12-14] MEDS: MEROPENEM 1GM 100 ML IV SCH ×3 (06:07→22:40)
--- NOTE | 2019-12-14 06:24 | NUR ---
IM- progress note O/N no events ROS: no f/c/s/SKINNER/cp/sob/skin rash/dizziness/leg edema/focal limb weakness v/s revd PE: tired appearing anicteric ns1s2 mod bs soft nd; epigastrium tender no e/t skin dry flat affect a&ox3; gonzalez labs/meds revd A/P: 59yoM Acute pancreatitis- IVF; IV abx; NPO. HTN- treat AKIRA- IVF UTI- IV merrem Diverticulosis- npo at this time Overweight- screen for DM BMI 28 Hyperglycemia- screen for DM HLD- will need treatment Prop: scd; pepcid dispo: f/u labs; IVF; NPO: 4-19 f/u labs; 4-20 leukocytosis improving; lipase improving; check labs today; GB sludge, but no CBD dilatation. pt is improving. 4-21 lipase improving; WBC improving; pt feeling better; diet per GI; pt does Not want surgery at this time. 4-22 peripheral edema- d/c IVF; cont low dose lasix; lipase improves to normal; diet; Mariano Andres MD, PhD.
[2019-12-14 06:53] LABS: ANION GAP 11.3 mmol/L (8-16); BLOOD UREA NITROGEN 14 mg/dL (7-26); BUN/CREATININE RATIO 18 (6-25); CALCIUM 7.3 mg/dL (8.4-10.2); CARBON DIOXIDE 29 mmol/L (22-29); CHLORIDE 104 mmol/L (98-107); CREATININE, SERUM 0.78 mg/dL (0.72-1.25); EST GLOMERULAR FILTRATION RATE > 60 ML/MIN (60-); GLUCOSE 103 mg/dL (74-118); POTASSIUM 3.3 mmol/L (3.5-5.1); SODIUM 141 mmol/L (136-145)
--- NOTE | 2019-12-14 07:00 | NUR ---
BED SIDE SHIFT REPORT GIVEN TO ONCOMING RN.STABLE CONDITION.
[2019-12-14] MEDS: TAMSULOSIN HCL 0.4 MG CAP PO SCH ×2 (09:00→16:58)
[2019-12-14] MEDS: LIDOCAINE 4% PATCH TP SCH (09:00)
[2019-12-14] MEDS: FUROSEMIDE INJ 10 MG/ML 2 ML VIAL IV SCH ×2 (09:00→16:58)
[2019-12-14] MEDS: FAMOTIDINE 20 MG/2 ML VIAL IV SCH ×2 (09:00→16:58)
--- NOTE | 2019-12-14 10:20 | Diagnostic Imaging Report ---
EXAMINATION: CT of the thoracic and lumbar spine without contrast HISTORY: Back pain, acute pancreatitis COMPARISON: Abdomen CT of 12/13/2019 TECHNIQUE: Multidetector helical axial images were obtained without contrast from T1 to S1. The images were reconstructed in sagittal, and coronal planes. Dose modulation, iterative reconstruction, and/or weight based adjustment of the mA/kV was utilized to reduce the radiation dose to as low as reasonably achievable. FINDINGS: Please note, the patient has transitional vertebral anatomy. Nerve roots as numbered in this report may not correspond to standard dermatomal patterns. For the purposes of the current examination and based on the thoracic vertebral count, the last well-formed intervertebral disc corresponds to L5-S1 (on abdomen CT of 12/13/2019 this was labeled as L4-L5, as no thoracic spine was available for more accurate vertebral body counting and labeling), S1 is considered to be lumbarized, and there is a rudimentary S1-S2 disc. Alignment: Mild increased mid thoracic kyphosis. Normal lumbar lordosis. Vertebral bodies: Normal height and density. Particularly no evidence of infection, fractures or neoplasms. Shallow Schmorl nodes in the inferior endplates of T6, T7, T8 and T9. Paraspinal soft tissues: Chest: Partially visualized lung parenchyma peripheral areas of groundglass opacity, right greater left pleural effusions and bibasilar atelectases. Abdomen: Findings consistent with acute pancreatitis, free fluid in the abdomen, and bilateral renal cyst, please see dictation of abdomen CT performed the day before for further detail. Intervertebral disks: L1-L2: Decreased disc height, marginal endplate osteophytes. No spinal canal or foraminal stenoses. L2-L3: Normal L3-L4: Normal L4-L5: Minimal symmetric disc bulge, no spinal canal or foraminal stenoses. L5-S1: Decreased disc height, symmetric disc bulge, bilateral facet arthrosis. Bilateral L5 pars interarticulares is spondylolyses results in grade 1 spondylolisthesis. Mild bilateral neural foraminal stenoses with mild stretching of the exiting L5 nerve roots but not definite compression at this time. S1-S2: Preliminary disc. No stenoses. Thoracic spine: No significant degenerative changes, no disc herniations, no spinal canal or foraminal stenosis. IMPRESSION: 1. No acute thoracic or lumbar spine abnormalities, particularly no evidence of infection or fractures. 2. Grade 1 spondylolisthesis of L5 on S1 is due to bilateral L5 spondylolyses. 3. Mild foraminal stenoses at L5-S1 is due to degenerative changes and spondylolisthesis. 4. Partially visualized lung opacities, pleural effusions and abdominal findings consistent with acute pancreatitis, the latter may explain patient's referred back pain. Note that the patient presents transitional lumbosacral anatomy and the lumbar spine labeling is described in detail above. Signed by: Dr. Mari Wilkinson M.D. on 12/14/2019 10:17 AM
--- NOTE | 2019-12-14 11:10 | Progress Note ---
DATE: SUBJECTIVE: Mr. Garcia is a pleasant 59-year-old gentleman, admitted with an abdominal pain diagnosed with acute pancreatitis. He started to have some clear liquids and seems to be tolerating, had some chronic back pain, which is not new. He just came back from CAT scan, pending results. REVIEW OF SYSTEMS: Still abdominal discomfort. No nausea, no vomiting, no fever, no chills. No chest pain or shortness of breath. He tolerates p.o. PHYSICAL EXAMINATION: VITAL SIGNS: Temperature is 97.8, pulse 91, respirations 20, and blood pressure 197/99. GENERAL: Alert and oriented, no acute distress. CV: S1 and S2. CHEST: Equal expansion. Clear to auscultation. No acute distress. ABDOMEN: Soft. Discomfort in left upper extremity and tenderness improved. EXTREMITIES: Moves all. No edema. MEDICATIONS: Medication list reviewed. As far as Infectious Disease point of view, the patient is on meropenem. LABORATORY STUDIES: White count is 12.33, hemoglobin 12.2, platelet 154, improved from 142. Sodium 141, potassium 3.3, creatinine 0.78. MICROBIOLOGY: Blood culture on 12/08 negative. No new microbiology studies available. RADIOLOGY: He just had a CT of the L and T-spine, results pending. Recheck CT of abdomen and pelvis from yesterday showed acute pancreatitis with slight interval increase in amount of peripancreatic inflammatory stranding and fluid. No evidence of loculated/drainable fluid collection. No evidence of pancreatic parenchymal necrosis or hemorrhage. ASSESSMENT AND PLAN: 1. Acute pancreatitis. 2. Chronic back pain. 3. Leukocytosis. 4. Fever. 5. Obesity. 6. Hypertension. The lipase has improved to 78, which is within normal limit. Pain has improved in regard to his pancreatitis. Recheck CT of the abdomen and pelvis as mentioned above. Follow up with the CT of the spine that was done today. Continue with meropenem. Tolerating liquid diet, which is clear liquid. Discussed with Dr. Aguero in details. Please refer to chart for more information. Dictated by Jermaine Ferguson PA-C (Al) Bishop Aguero MD /MODL /[id number]
--- NOTE | 2019-12-14 16:04 | NUR ---
Nutrition Screen Note RD Recommendation for Physician: -Recommend advancing to low fat diet when medically appropriate Plan of Care: RD following, monitoring for tolerance and adequacy Nutrition reason for involvement: NPO/Clear Liquid Diet > 4 days Primary Diagnose(s): acute pancreatitis PMH: none Ht: 70 in Wt:197 lb BMI: 28.3 kg/m2 IBW:[address] Assessment: (12/13) Chart reviewed. Labs and meds reviewed. Pt is a 59 year old male admitted with acute pancreatitis. Pt had been NPO since 12/08 and was advanced to a clear liquid diet today. No N/V/D/C reported at this time. Pt reports he is tolerating the liquid diet. Prior to admission, pt reports eating most of his meals and has not had any recent changes in his weight. Will continue to monitor. Current Diet: clear liquids Malnutrition Evaluation (12/14/19) The patient does not meet criteria for a specified degree of malnutrition at this time. Will re-evaluate at follow-up as appropriate. Energy intake: <50% of estimated energy requirements for 5 days Weight loss: No weight loss reported Fat loss: no loss identified Muscle loss: no loss identified Supporting Evidence: Fluid accumulation: no edema per MD note Functional Status: unable to evaluate Diet Education Needs Assessment: Diet education indicated Learner(s): pt Barriers: no barriers identified Cultural/Language Modifications: no cultural/language modifications Readiness: eager/acceptance Method: explanation/ discussion, handout Topics: low fat diet - pancreatitis Understanding/Compliance: pt verbalized understanding Nutrition Care Level: moderate Signed: Misty Urban, RD, LD
--- NOTE | 2019-12-14 19:00 | NUR ---
Pt visited in room during nursing rounds. Patient alert and oriented x3. Ambulatory in room prn. Pt having frequent pain on back and abdomen and is being medicated accordingly. On IV antibiotic treatment. Call jaramillo within reach. Will monitor pt closely.
--- NOTE | 2019-12-14 23:50 | NUR ---
Dr. Ethel Klein came and saw pt in room. MD aware of pt condition and ordered dulcolax 20mg suppository x1 dose in AM and Lasix 20mg IV x1 dose in AM as well.
[2019-12-15] VITALS (7 sets, daily range): BP systolic 129–174; BP diastolic 82–102
[2019-12-15] MEDS: MEROPENEM 1GM 100 ML IV SCH ×3 (05:44→22:00)
[2019-12-15] MEDS: METOCLOPRAMIDE HCL 10 MG/2ML VIAL IV SCH ×4 (05:44→23:50)
[2019-12-15] MEDS ORDERED: FUROSEMIDE INJ 10 MG/ML 2 ML VIAL IV ONE (07:00)
--- NOTE | 2019-12-15 07:28 | NUR ---
RECEIVED REPORT FROM INSIDE SALES DIRECTOR NURSE, PATIENT IS IN BED, NO DISTRESS NOTED. A&OX3, BED LOW AND LOCKED, SIDE RAIL UPX2, CALL LIGHT WITHIN REACH, WILL CONTINUE TO MONITOR.
[2019-12-15] MEDS ORDERED: BISACODYL 10 MG SUPP PR ONE (09:00)
--- NOTE | 2019-12-15 09:02 | NUR ---
NOTIFIED DR. CARRERA OF PATIENT'S SCROTAL SWELLING. NO NEW ORDERS. AWARE.
--- NOTE | 2019-12-15 09:02 | NUR ---
IM- progress note O/N no events ROS: no f/c/s/SKINNER/cp/sob/skin rash/dizziness/leg edema/focal limb weakness v/s revd PE: tired appearing anicteric ns1s2 mod bs soft nd; epigastrium tender no e/t skin dry flat affect a&ox3; gonzalez labs/meds revd A/P: 59yoM Acute pancreatitis- IVF; IV abx; NPO. HTN- treat AKIRA- IVF UTI- IV merrem Diverticulosis- npo at this time Overweight- screen for DM BMI 28 Hyperglycemia- screen for DM HLD- will need treatment Prop: scd; pepcid dispo: f/u labs; IVF; NPO: 4-19 f/u labs; 4-20 leukocytosis improving; lipase improving; check labs today; GB sludge, but no CBD dilatation. pt is improving. 4-21 lipase improving; WBC improving; pt feeling better; diet per GI; pt does Not want surgery at this time. 4-22 peripheral edema- d/c IVF; cont low dose lasix; lipase improves to normal; diet; 4-23 check lipase and K; continue lasix for anasarca. on diet. Mariano Andres MD, PhD.
[2019-12-15] MEDS: TAMSULOSIN HCL 0.4 MG CAP PO SCH ×2 (09:39→16:42)
[2019-12-15] MEDS: LIDOCAINE 4% PATCH TP SCH (09:39)
[2019-12-15] MEDS: FUROSEMIDE INJ 10 MG/ML 2 ML VIAL IV SCH ×2 (09:39→16:42)
[2019-12-15] MEDS: FAMOTIDINE 20 MG/2 ML VIAL IV SCH ×2 (09:39→16:42)
[2019-12-15] MEDS: LABETALOL HCL 5 MG/ML 20ML VIAL IV PRN (11:29)
--- NOTE | 2019-12-15 11:34 | Progress Note ---
DATE: SUBJECTIVE: Mr. Garcia is a pleasant 59-year-old gentleman with acute pancreatitis. The patient was started on full regular diet. He had pancakes and eggs this morning and about 3-1/2 hours ago and he is tolerating, having no complication so far. REVIEW OF SYSTEMS: No nausea. No vomiting. No fever. No chills. No chest pain. No shortness of breath. No headache. No dysuria. No polyuria. PHYSICAL EXAMINATION: VITAL SIGNS: Temperature 99.9, pulse 102, respiration 20, and blood pressure 153/82. GENERAL: Alert and oriented x3. No acute distress. CV: S1 and S2. CHEST: Equal expansion. Clear to auscultation. No acute distress. ABDOMEN: Soft and nontender. No distention. HEENT: Moist. No pallor. No JVD. EXTREMITIES: Moves all. No edema. MEDICATIONS: Medication list reviewed and as far as Infectious Disease point of view, the patient is on meropenem. LABORATORY STUDIES: No new CBC or BMP available from today. MICROBIOLOGY: No new microbiology studies available. RADIOLOGY: No new radiology studies available. The patient had a CT of L and T-spine yesterday secondary to chronic back pain, showed no acute thoracic or lumbar spine abnormalities, particularly no evidence of infection or fracture. ASSESSMENT AND PLAN: 1. Acute pancreatitis, clinically seems better. Lipase was 78 yesterday, back to normal. Tolerated regular diet this morning. 2. Chronic back pain. CT of L and T-spine as mentioned above. 3. Leukocytosis. 4. Fever, improved. 5. Obesity/hypertension. 6. Continue meropenem while the patient is in the hospital. Antibiotic can be stopped on discharge and follow up with Dr. Aguero in 2 weeks. Please refer to chart for more information. Dictated by Jermaine Ferguson PA-C (Al) Bishop Aguero MD /MODL /[id number]
[2019-12-15] MEDS ORDERED: ACETAMINOPHEN 325 MG TAB PO PRN (12:30)
[2019-12-15 12:37] LABS: BASOPHILS # (AUTO) 0.1 (0.0-0.1); BASOPHILS % 0.4 % (0.0-1.0); EOSINOPHILS # (AUTO) 0.2 (0.0-0.4); EOSINOPHILS % 1.2 % (0.0-6.0); HEMATOCRIT 38.8 % (38.2-49.6); HEMOGLOBIN 12.9 g/dL (14.0-18.0); MEAN CORPUSCULAR HEMOGLOBIN 29.7 pg (28-32); MEAN CORPUSCULAR HGB CONC 33.2 g/dL (31-35); MEAN CORPUSCULAR VOLUME 89.2 fL (81-99); MONOCYTES # (AUTO) 1.3 (0.2-0.8); MONOCYTES % 8.7 % (4.4-11.3); NEUTROPHILS # (AUTO) 11.6 (2.1-6.9); NEUTROPHILS % 79.7 % (38.7-80.0); PLATELET COUNT 188 x10e3/uL (140-360); RED BLOOD COUNT 4.35 x10e6/uL (4.3-5.7)
[2019-12-15] MEDS: HYDROMORPHONE 2MG/ML 2 MG/ML ML IV PRN ×3 (12:38→21:51)
[2019-12-15] MEDS: ONDANSETRON HCL INJ 2MG/ML 2ML 2 MG/ML VIAL IV PRN (12:39)
[2019-12-15] MEDS ORDERED: POTASSIUM CHLORIDE 20 MEQ TAB CR PO ONE (12:57)
--- NOTE | 2019-12-15 12:57 | NUR ---
NOTIFIED DR. CARRERA OF PATIENT'S POTASSIUM AND LIPASE LEVELS. NEW ORDER TO REPLACE POTASSIUM BY 60MEQ OF POTASSIUM PO ONCE AND TO CALL DR. Otilio HORN TO NOTIFY OF LIPASE LEVEL INCREASE.
--- NOTE | 2019-12-15 13:35 | Diagnostic Imaging Report ---
EXAMINATION: CHEST SINGLE (PORTABLE) INDICATION: Fever, hypoxia COMPARISON: None FINDINGS: LINES/TUBES:None LUNGS:The lung volumes are low. Mild patchy opacity at the left lung base. PLEURA:Trace left pleural effusion. No pneumothorax. MEDIASTINUM:The cardiomediastinal silhouette appears normal in size and shape. BONES/SOFT TISSUES:No acute osseous injury. ABDOMEN:No free air under the diaphragm. IMPRESSION: Low lung volumes. Patchy opacity at the left lung base more likely atelectasis than superimposed aspiration or pneumonia. Trace left pleural effusion. Signed by: Beck Meier MD on 12/15/2019 1:32 PM
--- NOTE | 2019-12-15 15:17 | NUR ---
PAGED DR. Otilio HORN TO NOTIFY OF LIPASE LEVEL. WAITING YEAST MAKER BACK.
--- NOTE | 2019-12-15 17:54 | NUR ---
CHECKED PATIENT'S BLOOD PRESSURE TO RIGHT ARM BP IS 137/74.
--- NOTE | 2019-12-15 19:05 | NUR ---
t visited in room during nursing rounds. Patient alert and oriented x3. Ambulatory in room prn. Pt having still having frequent pain on back is being medicated accordingly. On IV antibiotic treatment. Call jaramillo within reach. Will monitor pt closely.
--- NOTE | 2019-12-15 22:45 | NUR ---
Dr. Castillo Klein came and visited pt during rounds. MD aware of pt condition. MD ordered to change diet from Regular to GI Soft with low fat diet.
--- NOTE | 2019-12-15 23:00 | NUR ---
Nurse (Jonatan) spoke with patient's (Angelita Garcia) over the phone to provide some updates on patient's medical care.
[2019-12-16] VITALS (8 sets, daily range): BP systolic 126–154; BP diastolic 65–87
[2019-12-16] MEDS: LABETALOL HCL 5 MG/ML 20ML VIAL IV PRN (00:22)
[2019-12-16] MEDS: HYDROMORPHONE 2MG/ML 2 MG/ML ML IV PRN ×4 (04:01→20:00)
[2019-12-16] MEDS: MEROPENEM 1GM 100 ML IV SCH (06:40)
[2019-12-16] MEDS: METOCLOPRAMIDE HCL 10 MG/2ML VIAL IV SCH ×2 (06:40→12:14)
--- NOTE | 2019-12-16 07:00 | NUR ---
BEDSIDE SHIFT REPORT RECEIVED FROM THE TRANSPORTATION PROGRAM DIRECTOR RN. CALL LIGHT WITH IN EASY REACH. INSTRUCTED PT TO USE CALL LIGHT FOR ALL THE NEEDS. EDUCATED PT ABOUT FALL PRECAUTIONS. PT VERBALIZED UNDERSTANDING. BED IS LOW AND LOCKED. SIDE RAILS X2. PT DENIES NEEDS AT THIS TIME.
--- NOTE | 2019-12-16 07:15 | NUR ---
PT HAS SWELLING ON SCROTUM. PAGED DR. CARRERA AND REPORTED THE SAME.
[2019-12-16] MEDS: FUROSEMIDE INJ 10 MG/ML 2 ML VIAL IV SCH (09:03)
[2019-12-16] MEDS: FAMOTIDINE 20 MG/2 ML VIAL IV SCH (09:03)
[2019-12-16] MEDS: TAMSULOSIN HCL 0.4 MG CAP PO SCH ×2 (09:03→17:10)
[2019-12-16] MEDS: LIDOCAINE 4% PATCH TP SCH (09:03)
--- NOTE | 2019-12-16 09:05 | NUR ---
IM- progress note O/N no events ROS: no f/c/s/SKINNER/cp/sob/skin rash/dizziness/leg edema/focal limb weakness v/s revd PE: tired appearing anicteric ns1s2 mod bs soft nd; epigastrium tender no e/t skin dry flat affect a&ox3; gonzaelz labs/meds revd A/P: 59yoM Acute pancreatitis- IVF; IV abx; NPO. HTN- treat AKIRA- IVF UTI- IV merrem Diverticulosis- npo at this time Overweight- screen for DM BMI 28 Hyperglycemia- screen for DM HLD- will need treatment Prop: scd; pepcid dispo: f/u labs; IVF; NPO: 4-19 f/u labs; 4-20 leukocytosis improving; lipase improving; check labs today; GB sludge, but no CBD dilatation. pt is improving. 4-21 lipase improving; WBC improving; pt feeling better; diet per GI; pt does Not want surgery at this time. 4-22 peripheral edema- d/c IVF; cont low dose lasix; lipase improves to normal; diet; 4-23 check lipase and K; continue lasix for anasarca. on diet. 4-24 check labs; Scrotal edema- increase diuresis; Mariano Andres MD, PhD.
[2019-12-16 09:29] LABS: BASOPHILS % 0.3 % (0.0-1.0); EOSINOPHILS # (AUTO) 0.2 (0.0-0.4); EOSINOPHILS % 1.6 % (0.0-6.0); HEMATOCRIT 37.1 % (38.2-49.6); HEMOGLOBIN 12.6 g/dL (14.0-18.0); LYMPHOCYTES # (AUTO) 0.9 (1.0-3.2); LYMPHOCYTES % 5.8 % (18.0-39.1); MEAN CORPUSCULAR HEMOGLOBIN 30.2 pg (28-32); MONOCYTES # (AUTO) 0.8 (0.2-0.8); MONOCYTES % 5.5 % (4.4-11.3); NEUTROPHILS % 84.3 % (38.7-80.0); PLATELET COUNT 181 x10e3/uL (140-360); RED BLOOD COUNT 4.17 x10e6/uL (4.3-5.7); RED CELL DISTRIBUTION WIDTH 13.2 % (11.7-14.4)
[2019-12-16 09:47] LABS: ANION GAP 9.3 mmol/L (8-16); BLOOD UREA NITROGEN 13 mg/dL (7-26); BUN/CREATININE RATIO 16 (6-25); CALCIUM 7.5 mg/dL (8.4-10.2); CARBON DIOXIDE 32 mmol/L (22-29); CHLORIDE 100 mmol/L (98-107); CREATININE, SERUM 0.81 mg/dL (0.72-1.25); EST GLOMERULAR FILTRATION RATE > 60 ML/MIN (60-); GLUCOSE 148 mg/dL (74-118); POTASSIUM 3.3 mmol/L (3.5-5.1); SODIUM 138 mmol/L (136-145)
--- NOTE | 2019-12-16 10:00 | NUR ---
CASSIE CARRERA AND REPORTED WBC 15 AND LIPASE 248 VALUES.
[2019-12-16 10:29] LABS: EOSINOPHILS % (MANUAL) 1 % (0-7); LYMPHOCYTES % (MANUAL) 1 % (19-48); MONOCYTES % (MANUAL) 3 % (3.4-9.0); NEUTROPHILS % (MANUAL) 95 % (40-74)
[2019-12-16 10:30] LABS: PLATELET ESTIMATE ADEQUATE; PLATELET MORPHOLOGY COMMENT NORMAL; RBC MORPHOLOGY COMMENT NORMAL
--- NOTE | 2019-12-16 10:55 | NUR ---
Visit made by Kayla Han. Tube Trailer Filler provided pastoral presence, prayer, hospitality, and supportive listening. Tube Trailer Filler informed pt/family of the scope of [employer] and availability. [facility] Department O: [phone]
[2019-12-16] MEDS ORDERED: POTASSIUM CHLORIDE 20 MEQ TAB CR PO ONE (11:58)
[2019-12-16] MEDS: FUROSEMIDE INJ 10 MG/ML 4 ML VIAL IV SCH ×2 (12:13→21:00)
--- NOTE | 2019-12-16 13:00 | NUR ---
PAGED DR. CARRERA REGARDING PT IV ABX.
--- NOTE | 2019-12-16 14:00 | NUR ---
PT HAS NO IV ABX. PAGED DR. LEVY REGARDING THE SAME.
--- NOTE | 2019-12-16 16:31 | NUR ---
RD received consult to provide diet education to pt due to pancreatitis. Pancreatitis nutrition education (low fat diet) was provided to pt by SUKH on 12/13. Spoke with pt today and he did not have any questions about the diet education that was previously provided. Will continue to monitor.
--- NOTE | 2019-12-16 16:59 | Diagnostic Imaging Report ---
Exam: Testicular ultrasound. Clinical History: Scrotal edema Findings: Sonographic evaluation of the testicles. Both testes are normal in echogenicity and size without intratesticular mass. Normal symmetric blood flow and arterial waveforms to both testes without evidence of testicular torsion. Right: The right testicle measures 4.3 x 2.7 x 3.0 cm and appears unremarkable. The right epididymis measures 0.6 x 0.8 x 0.6 cm and appears unremarkable. Trace hydrocele. No varicocele. Left: The left testicle measures 4.1 x 2.9 x 3.1 cm and appears unremarkable. The left epididymis measures 1.0 x 0.6 x 0.6 cm and appears unremarkable. Trace hydrocele. No varicocele. There is diffuse scrotal thickening and scrotal soft tissue edema. No focal subcutaneous fluid collection. Impression: Scrotal skin thickening and subcutaneous soft tissue edema without focal fluid collection. No testicular torsion. Trace bilateral hydroceles. Signed by: Beck Meier MD on 12/16/2019 4:55 PM
[2019-12-16] MEDS: METOCLOPRAMIDE HCL 10 MG TAB PO SCH ×2 (17:10→23:57)
--- NOTE | 2019-12-16 19:45 | NUR ---
BEDSIDE SHIFT REPORT GIVEN TO THE PROFESSOR OF HISTORY RN. PT DENIED FURTHER NEEDS.
--- NOTE | 2019-12-16 19:45 | NUR ---
RECEIVED PATIENT IN REPORT. PATIENT RESTING IN BED AT THIS TIME, PAIN 10/10, WILL MEDICATE. SCROTAL EDEMA NOTED, ELEVATED PER MD ORDERS. NO S&S OF DISTRESS NOTED. BED LOCKED IN LOWEST POSITION, SIDE RAILS UPX2, CALL LIGHT IN REACH.
[2019-12-16] MEDS: FAMOTIDINE 20 MG TAB PO SCH (21:00)
--- NOTE | 2019-12-16 21:45 | NUR ---
Spoke with Dr. Andres regarding renewing of pt pain medication, orders given and initiated
--- NOTE | 2019-12-16 22:04 | Consultation ---
DATE OF CONSULTATION: 12/16/2019 Urology Consultation REASON FOR CONSULTATION: Scrotal edema. HISTORY OF PRESENT ILLNESS: Rivera Gacria is a 59-year-old man with no previous urological evaluation. The patient's baseline status is nocturia one time per night. He denies lower tract obstructive symptoms and lower tract irritative symptoms. He has never had urinary tract infection nor any urolithiasis. He has never had hematuria and dysuria. The patient is admitted with pancreatitis and has developed edema of his lower extremities as well as the scrotum and urological consultation was sought. PAST MEDICAL AND SURGICAL HISTORY: Status post tonsillectomy. ALLERGIES: NONE KNOWN. CURRENT MEDICATIONS: Please refer to the MAR. SOCIAL HISTORY: The patient denies smoking, ethanol, or drug use. He is an assistant brand manager. He quit smoking many years ago. REVIEW OF SYSTEMS: Discussed as above in the history of present illness and past medical history, otherwise negative for all systems. The patient is on tamsulosin for presumed BPH. FAMILY HISTORY: Noncontributory to the active urological problems. PHYSICAL EXAMINATION: GENERAL: Very pleasant 59-year-old man, lying in bed, in no apparent distress. VITAL SIGNS: He is currently afebrile. His temperature maximum is 100.9, but his vital signs are stable. ABDOMEN: Soft, nondistended, nontender except for epigastric area. There is no costovertebral angle tenderness. Kidneys are not palpable without hepatosplenomegaly. GENITOURINARY: Testes are within a significantly edematous scrotum. They are nontender. There is penoscrotal edema. The patient has normal circumcised male phallus with normal meatus without any lesion. Digital rectal examination is deferred at present time. For the remaining physical examination systems, please refer to the admission history and physical on the chart. LABORATORY STUDIES: White blood cell count is 15,380, hemoglobin is 12.6, and platelets are 191,000, they were low at 129,000 earlier during this hospitalization. The patient's potassium is low at 3.3, calcium is low at 7.5. CT scan of the abdomen and pelvis revealed acute pancreatitis. ASSESSMENT: 1. Penoscrotal edema, which corresponds to severe bilateral lower extremity edema. 2. Nocturia x1. 3. Presumed benign prostatic hypertrophy. 4. Leukocytosis. 5. Anemia. 6. Hypokalemia. 7. Hypocalcemia. PLANS: 1. Elevate the scrotum at all times. 2. Scrotal ultrasound just to ensure the testes are appropriate to the fact that they are difficult to examine. 3. Hematological and electrolyte abnormalities per the primary team. 4. Generalized edema per the primary team. 5. followup. Thank you much for involving us in the care of your patient. We will be happy to follow along with you as well as an outpatient. Justin Dacosta MD [place]/MODL /[id number] cc: Sourav Alves DO
[2019-12-17] VITALS (8 sets, daily range): BP systolic 124–170; BP diastolic 71–85
[2019-12-17] MEDS: HYDROMORPHONE 2MG/ML 2 MG/ML ML IV PRN ×6 (00:53→21:30)
[2019-12-17] MEDS: METOCLOPRAMIDE HCL 10 MG TAB PO SCH ×3 (05:47→17:19)
--- NOTE | 2019-12-17 07:00 | NUR ---
BEDSIDE SHIFT REPORT RECEIVED FROM THE SOLDER SPRAYER RN. CALL LIGHT WITH IN EASY REACH. INSTRUCTED PT TO USE CALL LIGHT FOR ALL THE NEEDS. EDUCATED PT ABOUT FALL PRECAUTIONS. PT VERBALIZED UNDERSTANDING. BED IS LOW AND LOCKED. SIDE RAILS X2. PT DENIES NEEDS AT THIS TIME.
--- NOTE | 2019-12-17 07:57 | NUR ---
IM- progress note O/N no events ROS: no f/c/s/SKINNER/cp/sob/skin rash/dizziness/leg edema/focal limb weakness v/s revd PE: tired appearing anicteric ns1s2 mod bs soft nd; epigastrium tender no e/t skin dry flat affect a&ox3; gonzalez labs/meds revd A/P: 59yoM Acute pancreatitis- IVF; IV abx; NPO. HTN- treat AKIRA- IVF UTI- IV merrem Diverticulosis- npo at this time Overweight- screen for DM BMI 28 Hyperglycemia- screen for DM HLD- will need treatment Prop: scd; pepcid dispo: f/u labs; IVF; NPO: 4-19 f/u labs; 4-20 leukocytosis improving; lipase improving; check labs today; GB sludge, but no CBD dilatation. pt is improving. 4-21 lipase improving; WBC improving; pt feeling better; diet per GI; pt does Not want surgery at this time. 4-22 peripheral edema- d/c IVF; cont low dose lasix; lipase improves to normal; diet; 4-23 check lipase and K; continue lasix for anasarca. on diet. 4-24 check labs; Scrotal edema- increase diuresis; 4-25 check labs; U/S no focal fluid accumulation; B/L mild hydrocele. wrap legs; Mariano Andres MD, PhD.
[2019-12-17 08:54] LABS: BASOPHILS # (AUTO) 0.1 (0.0-0.1); BASOPHILS % 0.3 % (0.0-1.0); EOSINOPHILS # (AUTO) 0.3 (0.0-0.4); EOSINOPHILS % 1.4 % (0.0-6.0); HEMATOCRIT 36.6 % (38.2-49.6); HEMOGLOBIN 12.3 g/dL (14.0-18.0); LYMPHOCYTES # (AUTO) 1.3 (1.0-3.2); LYMPHOCYTES % 6.8 % (18.0-39.1); MEAN CORPUSCULAR HGB CONC 33.6 g/dL (31-35); MEAN CORPUSCULAR VOLUME 89.3 fL (81-99); MONOCYTES % 5.2 % (4.4-11.3); NEUTROPHILS # (AUTO) 15.5 (2.1-6.9); NEUTROPHILS % 84.5 % (38.7-80.0); PLATELET COUNT 184 x10e3/uL (140-360); RED CELL DISTRIBUTION WIDTH 13.1 % (11.7-14.4)
[2019-12-17] MEDS: LIDOCAINE 4% PATCH TP SCH ×2 (09:00→09:10)
[2019-12-17] MEDS: FAMOTIDINE 20 MG TAB PO SCH ×2 (09:10→21:00)
[2019-12-17] MEDS: TAMSULOSIN HCL 0.4 MG CAP PO SCH ×2 (09:10→16:46)
[2019-12-17] MEDS: FUROSEMIDE INJ 10 MG/ML 4 ML VIAL IV SCH ×2 (09:10→21:00)
--- NOTE | 2019-12-17 09:12 | NUR ---
PAGED DR. LEVY AND DR. CARRERA REGARDING PT WBC 18.
[2019-12-17 09:13] LABS: ANION GAP 11.3 mmol/L (8-16); BLOOD UREA NITROGEN 14 mg/dL (7-26); BUN/CREATININE RATIO 17 (6-25); CALCIUM 7.7 mg/dL (8.4-10.2); CARBON DIOXIDE 32 mmol/L (22-29); CHLORIDE 99 mmol/L (98-107); CREATININE, SERUM 0.84 mg/dL (0.72-1.25); EST GLOMERULAR FILTRATION RATE > 60 ML/MIN (60-); GLUCOSE 124 mg/dL (74-118); POTASSIUM 3.3 mmol/L (3.5-5.1); SODIUM 139 mmol/L (136-145)
[2019-12-17] MEDS: ONDANSETRON HCL 4 MG ORAL DISINTEGRATING TAB PO PRN ×2 (09:36→21:30)
--- NOTE | 2019-12-17 09:41 | NUR ---
PAGEAjay HORN AND INFORMED LIPASE 265.
--- NOTE | 2019-12-17 09:45 | NUR ---
DR. CARRERA AT BEDSIDE.
[2019-12-17] MEDS ORDERED: POTASSIUM CHLORIDE 20 MEQ TAB CR PO ONE (10:00)
--- NOTE | 2019-12-17 10:00 | NUR ---
STRICT I &O ,DAO WRAP LOWER EXTREMITIES PER DR. CARRERA.
--- NOTE | 2019-12-17 12:54 | NUR ---
INFECTIOUS DISEASE PROGRESS NOTE CC: Abdominal pain SUBJECTIVE: Mr. Garcia is a pleasant 59-year-old gentleman with acute pancreatitis. The patient was started on full regular diet. He had pancakes and eggs this morning and about 3-1/2 hours ago and he is tolerating, having no complication so far. REVIEW OF SYSTEMS: No nausea. No vomiting. No fever. No chills. No chest pain. No shortness of breath. No headache. No dysuria. No polyuria. ROS NEGATIVE 14 points PHYSICAL EXAMINATION: VITAL SIGNS: Temperature 99.1, 170/71, 96, 18 GENERAL: Alert and oriented x3. No acute distress. CV: S1 and S2. CHEST: Equal expansion. Clear to auscultation. No acute distress. ABDOMEN: Soft and nontender. No distention. HEENT: Moist. No pallor. No JVD. EXTREMITIES: Moves all. No edema. MEDICATIONS: Medication list reviewed and as far as Infectious Disease point of view, the patient is on meropenem. LABORATORY STUDIES: reviewed MICROBIOLOGY: No new microbiology studies available. RADIOLOGY: No new radiology studies available. The patient had a CT of L and T-spine yesterday secondary to chronic back pain, showed no acute thoracic or lumbar spine abnormalities, particularly no evidence of infection or fracture. ASSESSMENT 1. Acute pancreatitis, clinically seems better. 2. Chronic back pain. CT of L and T-spine as mentioned above. 3. Leukocytosis. 4. Fever, improved. 5. Obesity 6. HTN PLAN 12/17/19 Noted VS, temp, WBC. For now, we will monitor the patient. s/p Merrem. Likely reactive. Patient is clinically well, up in bed eating. Discussed with Dr. More Paul
--- NOTE | 2019-12-17 19:00 | NUR ---
BEDSIDE SHIFT REPORT GIVEN TO THE CUSTOMS AND BORDER PROTECTION OFFICER RN. PT DENIED FURTHER NEEDS.
--- NOTE | 2019-12-17 19:00 | NUR ---
Bedside report completed with morning nurse. Pt alert and oriented to name, sitting up in bed. Denies pain at this time. Call light within reach.
[2019-12-18] VITALS (9 sets, daily range): BP systolic 121–166; BP diastolic 60–100
[2019-12-18 05:21] LABS: BASOPHILS # (AUTO) 0.1 (0.0-0.1); BASOPHILS % 0.3 % (0.0-1.0); EOSINOPHILS # (AUTO) 0.2 (0.0-0.4); EOSINOPHILS % 1.2 % (0.0-6.0); HEMATOCRIT 37.5 % (38.2-49.6); HEMOGLOBIN 12.5 g/dL (14.0-18.0); LYMPHOCYTES # (AUTO) 1.1 (1.0-3.2); LYMPHOCYTES % 6.2 % (18.0-39.1); MEAN CORPUSCULAR HGB CONC 33.3 g/dL (31-35); MEAN CORPUSCULAR VOLUME 89.9 fL (81-99); MONOCYTES # (AUTO) 0.9 (0.2-0.8); MONOCYTES % 5.1 % (4.4-11.3); NEUTROPHILS # (AUTO) 15.9 (2.1-6.9); NEUTROPHILS % 85.7 % (38.7-80.0); PLATELET COUNT 192 x10e3/uL (140-360); RED BLOOD COUNT 4.17 x10e6/uL (4.3-5.7); RED CELL DISTRIBUTION WIDTH 13.2 % (11.7-14.4)
[2019-12-18 05:40] LABS: ANION GAP 12.3 mmol/L (8-16); BLOOD UREA NITROGEN 12 mg/dL (7-26); BUN/CREATININE RATIO 12 (6-25); CALCIUM 8.1 mg/dL (8.4-10.2); CARBON DIOXIDE 30 mmol/L (22-29); CHLORIDE 98 mmol/L (98-107); CREATININE, SERUM 1.01 mg/dL (0.72-1.25); EST GLOMERULAR FILTRATION RATE > 60 ML/MIN (60-); GLUCOSE 116 mg/dL (74-118); POTASSIUM 3.3 mmol/L (3.5-5.1); SODIUM 137 mmol/L (136-145)
[2019-12-18] MEDS: METOCLOPRAMIDE HCL 10 MG TAB PO SCH ×4 (06:21→17:05)
--- NOTE | 2019-12-18 06:22 | NUR ---
Uneventful shift, pt awake a/o x3 at this time. Ambulating to Bathroom no diff. No c/o at this time, will hand off report to on coming shift nurse
--- NOTE | 2019-12-18 07:00 | NUR ---
Received bedside shift report from off going nurse. Patient in stable condition, no s/s of distress noted. No pain voiced. Nirmal wrap applied to bilateral lower extremities + 4 edema noted. Bed in lowest position and locked. Call light within reach. All personal items within reach.
--- NOTE | 2019-12-18 08:08 | Diagnostic Imaging Report ---
EXAMINATION: CHEST 2 VIEWS INDICATION: ^R/O PNEUMONIA ^[id number] ^0632 ^Y COMPARISON: Chest radiograph 12/15/2019 FINDINGS: PA and lateral views TUBES and LINES: None. LUNGS: Low lung volumes. Stable left retrocardiac airspace opacity. No new consolidations. PLEURA: No pleural effusion or pneumothorax. HEART AND MEDIASTINUM: The cardiomediastinal silhouette is unremarkable. BONES AND SOFT TISSUES: No acute osseous lesion. Soft tissues are unremarkable. UPPER ABDOMEN: No free air under the diaphragm. IMPRESSION: Stable left retrocardiac airspace opacity may reflect atelectasis or pneumonia. Signed by: Dr. Macy Negrete M.D. on 12/18/2019 8:04 AM
[2019-12-18] MEDS: LIDOCAINE 4% PATCH TP SCH (08:24)
[2019-12-18] MEDS: TAMSULOSIN HCL 0.4 MG CAP PO SCH ×2 (08:26→17:05)
[2019-12-18] MEDS: FAMOTIDINE 20 MG TAB PO SCH ×2 (08:26→21:30)
[2019-12-18] MEDS: FUROSEMIDE INJ 10 MG/ML 4 ML VIAL IV SCH ×2 (08:27→21:30)
--- NOTE | 2019-12-18 09:11 | NUR ---
IM- progress note O/N no events ROS: no f/c/s/SKINNER/cp/sob/skin rash/dizziness/leg edema/focal limb weakness v/s revd PE: tired appearing anicteric ns1s2 mod bs soft nd; epigastrium tender no e/t skin dry flat affect a&ox3; gonzalez labs/meds revd A/P: 59yoM Acute pancreatitis- IVF; IV abx; NPO. HTN- treat AKIRA- IVF UTI- IV merrem Diverticulosis- npo at this time Overweight- screen for DM BMI 28 Hyperglycemia- screen for DM HLD- will need treatment Prop: scd; pepcid dispo: f/u labs; IVF; NPO: 4-19 f/u labs; 4-20 leukocytosis improving; lipase improving; check labs today; GB sludge, but no CBD dilatation. pt is improving. 4- lipase improving; WBC improving; pt feeling better; diet per GI; pt does Not want surgery at this time. 4- peripheral edema- d/c IVF; cont low dose lasix; lipase improves to normal; diet; 4- check lipase and K; continue lasix for anasarca. on diet. 4- check labs; Scrotal edema- increase diuresis; 4-25 check labs; U/S no focal fluid accumulation; B/L mild hydrocele. wrap legs; 4- stable; continue diuresis; I/O 1500/3330 replace K; Abx re-intiation by ID, for IV abx at home. d/c home with HH once set up by . Mariano Andres MD, PhD.
[2019-12-18] MEDS ORDERED: POTASSIUM CHLORIDE 20 MEQ TAB CR PO ONE (09:30)
--- NOTE | 2019-12-18 11:31 | NUR ---
INFECTIOUS DISEASE PROGRESS NOTE CC: Abdominal pain SUBJECTIVE: Mr. Garcia is a pleasant 59-year-old gentleman with acute pancreatitis. Able to eat, denies abdominal pain, diarrhea and vomiting. REVIEW OF SYSTEMS: No nausea. No vomiting. No fever. No chills. No chest pain. No shortness of breath. No headache. No dysuria. No polyuria. ROS NEGATIVE 14 points PHYSICAL EXAMINATION: VITAL SIGNS: Temperature 97.9, 146/77, 96, 18 GENERAL: Alert and oriented x3. No acute distress. CV: S1 and S2. CHEST: Equal expansion. Clear to auscultation. No acute distress. ABDOMEN: Soft and nontender. No distention. HEENT: Moist. No pallor. No JVD. EXTREMITIES: Moves all. No edema. MEDICATIONS: Medication list reviewed and as far as Infectious Disease point of view, the patient is on meropenem. LABORATORY STUDIES: reviewed MICROBIOLOGY: No new microbiology studies available. RADIOLOGY: IMPRESSION: Stable left retrocardiac airspace opacity may reflect atelectasis or pneumonia. ASSESSMENT 1. Acute pancreatitis, clinically seems better. 2. Chronic back pain. CT of L and T-spine as mentioned above. 3. Leukocytosis. 4. Fever, improved. 5. Obesity 6. HTN 7. Healthcare Associated Pneumonia PLAN 12/18/19 Will treat for healthcare associated PNA, given the CXR and persistent leukocytosis. Patient placed on Merrem and Vancomycin, plan for 10 days. Patient is clinically well at this time and ready to go home. Able to eat small meals. We will discuss with primary the plan of care. Can plan for home IV ABT, with once weekly follow-ups in the office. Will need PICC Line. 12/17/19 Noted VS, temp, WBC. For now, we will monitor the patient. s/p Merrem. Likely reactive. Patient is clinically well, up in bed eating. Get CXR in AM Discussed with Dr. More Paul
[2019-12-18] MEDS ORDERED: POTASSIUM CHLO20 ME1 PO (12:08)
[2019-12-18] MEDS ORDERED: FUROSEMIDE40 MG PO (12:08)
[2019-12-18] MEDS ORDERED: FAMOTIDINE20 MG PO (12:08)
[2019-12-18] MEDS ORDERED: FLOMAX0.4 MG PO (12:08)
[2019-12-18] MEDS: VANCOMYCIN 1GM/NS 250 ML 250 ML IV SCH (12:13)
--- NOTE | 2019-12-18 13:45 | NUR ---
DISCHARGE TODAY CANCELLED PER GIBRAN JAMISON HAND GLUER AND SLICER FOR DR LEVY; PT WILL NEED SENIOR CARE IV ABX; PICC LINE ORDERED; STATES THEY WILL TRY TO GET AUTH FROM PT'S INSURANCE TO DO IV ABX THRU DR LEVY'S OFFICE CM TO FOLLOW
[2019-12-18] MEDS: ONDANSETRON HCL 4 MG ORAL DISINTEGRATING TAB PO PRN ×2 (14:06→21:30)
[2019-12-18] MEDS: HYDROMORPHONE 2MG/ML 2 MG/ML ML IV PRN ×2 (14:06→21:30)
--- NOTE | 2019-12-18 16:49 | Diagnostic Imaging Report ---
EXAMINATION: CHEST XRAY LINE PLACEMENT INDICATION: ^PICC line placement COMPARISON: 12/18/2019 0642 hours FINDINGS: AP view TUBES and LINES: Interval placement of a left PICC with tip mildly coiled, likely within the azygos vein. LUNGS: Lungs are well inflated. Stable left retrocardiac consolidation. No pulmonary edema. PLEURA: No pleural effusion or pneumothorax. HEART AND MEDIASTINUM: The cardiomediastinal silhouette is unremarkable. BONES AND SOFT TISSUES: No acute osseous lesion. Soft tissues are unremarkable. UPPER ABDOMEN: No free air under the diaphragm. IMPRESSION: Interval placement of a left PICC with tip mildly coiled, likely within the azygos vein. Recommend revision. Stable left retrocardiac consolidation. Signed by: Dr. Macy Negrete M.D. on 12/18/2019 4:45 PM
--- NOTE | 2019-12-18 17:21 | Diagnostic Imaging Report ---
EXAMINATION: CHEST XRAY LINE PLACEMENT INDICATION: ^s/p picc line placement COMPARISON: 12/18/2019 1630 hours FINDINGS: AP view TUBES and LINES: Interval adjustment of the left PICC with tip now overlying the cavoatrial junction. LUNGS: Lungs are well inflated. Stable left retrocardiac consolidation. No pulmonary edema. PLEURA: Trace left pleural effusion is better seen on this exam. No pneumothorax. HEART AND MEDIASTINUM: The cardiomediastinal silhouette is unremarkable. BONES AND SOFT TISSUES: No acute osseous lesion. Soft tissues are unremarkable. UPPER ABDOMEN: No free air under the diaphragm. IMPRESSION: Interval adjustment of the left PICC with tip now overlying the cavoatrial junction. No pneumothorax. Signed by: Dr. Macy Negrete M.D. on 12/18/2019 5:18 PM
--- NOTE | 2019-12-18 19:31 | NUR ---
Completed bedside shift report and rounding with on coming nurse. Patient in stable condition, no s/s of distress noted. No pain voiced. Nirmal wrap applied to bilateral lower extremities + 4 edema noted. Bed in lowest position and locked. Call light within reach. All personal items within reach.
--- NOTE | 2019-12-18 20:09 | NUR ---
Received pt in bed awake no s/sx acute distress noted. Pt rate discomfort to back 7/10, request pain med after shower. Bed in low position personal items in reach. Will cont to thu.
[2019-12-18] MEDS: MEROPENEM 1GM 100 ML IV SCH (21:30)
[2019-12-19] MEDS: METOCLOPRAMIDE HCL 10 MG TAB PO SCH ×3 (00:22→12:10)
[2019-12-19] MEDS: VANCOMYCIN 1GM/NS 250 ML 250 ML IV SCH ×2 (00:22→12:09)
[2019-12-19 00:49] VITALS: BP 133/62
[2019-12-19] MEDS: ONDANSETRON HCL 4 MG ORAL DISINTEGRATING TAB PO PRN (02:30)
[2019-12-19] MEDS: HYDROMORPHONE 2MG/ML 2 MG/ML ML IV PRN ×2 (02:30→12:35)
[2019-12-19 04:51] VITALS: BP 129/67
[2019-12-19 05:26] LABS: BASOPHILS % 0.2 % (0.0-1.0); EOSINOPHILS # (AUTO) 0.3 (0.0-0.4); EOSINOPHILS % 1.9 % (0.0-6.0); HEMOGLOBIN 11.7 g/dL (14.0-18.0); LYMPHOCYTES # (AUTO) 1.2 (1.0-3.2); LYMPHOCYTES % 7.6 % (18.0-39.1); MEAN CORPUSCULAR HEMOGLOBIN 30.1 pg (28-32); MEAN CORPUSCULAR HGB CONC 33.4 g/dL (31-35); MONOCYTES % 6.3 % (4.4-11.3); NEUTROPHILS # (AUTO) 13.5 (2.1-6.9); NEUTROPHILS % 82.7 % (38.7-80.0); PLATELET COUNT 182 x10e3/uL (140-360); RED BLOOD COUNT 3.89 x10e6/uL (4.3-5.7); RED CELL DISTRIBUTION WIDTH 13.2 % (11.7-14.4)
[2019-12-19 05:45] LABS: ANION GAP 10.6 mmol/L (8-16); BLOOD UREA NITROGEN 10 mg/dL (7-26); BUN/CREATININE RATIO 11 (6-25); CALCIUM 7.7 mg/dL (8.4-10.2); CARBON DIOXIDE 30 mmol/L (22-29); CHLORIDE 102 mmol/L (98-107); CREATININE, SERUM 0.91 mg/dL (0.72-1.25); EST GLOMERULAR FILTRATION RATE > 60 ML/MIN (60-); GLUCOSE 101 mg/dL (74-118); POTASSIUM 3.6 mmol/L (3.5-5.1); SODIUM 139 mmol/L (136-145)
--- NOTE | 2019-12-19 06:15 | NUR ---
Pt awake in bed, no s/sx distress, Surgeon in to see patient, yasmeen am meds no diff.
[2019-12-19 07:20] VITALS: BP 131/76
--- NOTE | 2019-12-19 07:20 | NUR ---
PATIENT SITTING UP IN BED WORKING ON HIS COMPUTER, NO COMPLAIN VOICED. EDEMA TO LOWER EXTREMITIES WITH DAO WRAP IN PLACE. BED IN LOWER POSITION, CALL LIGHT AT REACH.
[2019-12-19 08:00] VITALS: BP 131/76
[2019-12-19] MEDS: LIDOCAINE 4% PATCH TP SCH (09:00)
[2019-12-19] MEDS ORDERED: TRIAMCINOLONE 0.1% OINTMENT 15 GM TUBE TP SCH (09:00)
[2019-12-19] MEDS: FAMOTIDINE 20 MG TAB PO SCH (09:07)
[2019-12-19] MEDS: MEROPENEM 1GM 100 ML IV SCH (09:07)
[2019-12-19] MEDS: TAMSULOSIN HCL 0.4 MG CAP PO SCH (09:07)
[2019-12-19] MEDS: FUROSEMIDE INJ 10 MG/ML 4 ML VIAL IV SCH (09:07)
--- NOTE | 2019-12-19 10:57 | Progress Note ---
DATE: SUBJECTIVE: The patient is seen and evaluated. Available labs and notes reviewed. REVIEW OF SYSTEMS: No nausea. No vomiting. No fever. No chills. No chest pain. No shortness of breath. No headache. No dysuria. Tolerates oral intake, clear liquids well. Also, swelling is almost resolved. PHYSICAL EXAMINATION: VITAL SIGNS: Temperature is 97.8, pulse is 87, respiration 18, and blood pressure 131/76. GENERAL: Alert and oriented, in no acute distress. CV: S1 and S2. CHEST: Equal expansion. Clear to auscultation. No acute distress. ABDOMEN: Soft and nontender. No distention. HEENT: Moist. No pallor. No JVD. EXTREMITIES: Improved edema. : Scrotal edema is significant. MEDICATIONS: Medication list reviewed and as far as Infectious Disease point of view, the patient is on vancomycin IV and Merrem. LABORATORY STUDIES: White blood cells 16.29, improved from 18.51, hemoglobin 11.7, and platelet 182. Sodium 139, potassium 3.6, and creatinine 0.91. Blood culture negative. Urine culture negative so far. RADIOLOGY: No new radiology studies available. ASSESSMENT AND PLAN: 1. Acute pancreatitis. 2. Chronic back pain. 3. Leukocytosis. 4. Hypertension. 5. Obesity. 6. Debility. 7. Fever, resolved. 8. Healthcare-associated pneumonia. 9. Continue to monitor the patient clinically and follow up with the labs. Continue with antibiotics at this point pending outpatient IV antibiotics set up as an outpatient. Discussed with case management. Discussed with Dr. Aguero. Please refer to chart for more information. Dictated by Jermaine Ferguson PA-C (Al) Bishop Aguero MD /MODL /[id number]
[2019-12-19 11:00] VITALS: BP 133/72
--- NOTE | 2019-12-19 11:04 | NUR ---
PATIENT AMBULATING IN HALLWAY, NO COMPLAIN VOICED. WILL CLOSELY MONITOR.
--- NOTE | 2019-12-19 12:49 | NUR ---
Spoke with JUMA Gonsales with Dr. Aguero. States they are still pending insurance authorization. JOSH called and spoke with Angelita [phone] and updated her on status.
--- NOTE | 2019-12-19 13:23 | NUR ---
Pt is approved for IV abx thru Dr. Aguero's office. [address] [facility] [address] [place] [address] Appointment time for 11:30 tomorrow. Appointment information printed out and given to pt. KEV Castro was notified that IV abx approved and pt is cleared from ID for discharge.
[2019-12-19 15:30] VITALS: BP 121/61
--- NOTE | 2019-12-19 15:54 | NUR ---
Nutrition Screen Note RD Recommendation for Physician: -Recommend advancing to low fat diet when medically appropriate Plan of Care: RD following, monitoring for tolerance and adequacy Nutrition reason for involvement: follow up Primary Diagnose(s): acute pancreatitis PMH: none Ht: 70 in Wt:197 lb BMI: 28.3 kg/m2 IBW:[address] Assessment: 12/18: Follow up. Pt pending discharge today, discussed progression of diet upon returning home with pt and RN at bedside. Discussed foods to add to diet while maintaining low fat restriction- pt verbalized understanding. Pt tolerating full liquid, low fat diet currently. No GI distress reported. All questions and concerns addressed at time of visit. Chart reviewed. Labs and meds reviewed. Will continue to monitor. (12/13) Chart reviewed. Labs and meds reviewed. Pt is a 59 year old male admitted with acute pancreatitis. Pt had been NPO since 12/08 and was advanced to a clear liquid diet today. No N/V/D/C reported at this time. Pt reports he is tolerating the liquid diet. Prior to admission, pt reports eating most of his meals and has not had any recent changes in his weight. Will continue to monitor. Current Diet: full liquids Malnutrition Evaluation (12/14/19) The patient does not meet criteria for a specified degree of malnutrition at this time. Will re-evaluate at follow-up as appropriate. Energy intake: <50% of estimated energy requirements for 5 days Weight loss: No weight loss reported Fat loss: no loss identified Muscle loss: no loss identified Supporting Evidence: Fluid accumulation: no edema per MD note Functional Status: unable to evaluate Diet Education Needs Assessment: Diet education indicated, provided 12/15 Learner(s): pt Barriers: no barriers identified Cultural/Language Modifications: no cultural/language modifications Readiness: eager/acceptance Method: explanation/ discussion, handout Topics: low fat diet - pancreatitis Understanding/Compliance: pt verbalized understanding Nutrition Care Level: Low Signed: Tamie Harper RD, LD, [facility]
--- NOTE | 2019-12-19 16:00 | NUR ---
PATIENT DISCHARGED HOME. DISCHARGE INSTRUCTIONS, PRESCRIPTIONS, AND FOLLOW UP GIVEN TO PATIENT, HE VERBALIZED UNDERSTANDING. PICC LINE TO LEFT UPPER ARM INTACT AND PATENT. ALL PERSONAL ITEMS TAKEN WITH PATIENT. LEFT UNIT PER WHEEL CHAIR TO FRONT LOBBY IN STABLE CONDITION.
== END 2019-12-19 15:53 | disposition home or self-care (01) | DRG 871 ==
LOC: ER 04:55 → ERHOLD 06:59 → MED/SURG2 09:32
PROVIDERS: ADMIT Internal Medicine; ATTEND Internal Medicine
PROC: 02HV33Z Insertion of Infusion Device into Superior Vena Cava, Percutaneous Approach (ICD-10-PCS; principal; 2019-12-18)
DX: A41.9 Sepsis, unspecified organism (principal); K85.90 Acute pancreatitis without necrosis or infection, unspecified; J18.9 Pneumonia, unspecified organism; N39.0 Urinary tract infection, site not specified; K81.0 Acute cholecystitis; Z68.28 Body mass index [BMI] 28.0-28.9, adult; N50.89 Other specified disorders of the male genital organs; E87.6 Hypokalemia; E83.51 Hypocalcemia; N40.1 Benign prostatic hyperplasia with lower urinary tract symptoms; R35.1 Nocturia; D64.9 Anemia, unspecified; E66.9 Obesity, unspecified; Y95 Nosocomial condition; I10 Essential (primary) hypertension; G89.29 Other chronic pain
CPT/HCPCS: 36415; 36569; 71045; 71046; 72128; 72131; 74177; 76705; 76870; 80048; 80053; 80061; 81001; 82150; 82550; 82553; 82948; 83036; 83605; 83690; 84132; 84484; 85007; 85025; 85027; 87040; 87086; 93005; 93306; 93976; 96361; 99284; J0360; J1170; J1940; J2270; J2405; J2765; J3370; J7030; J7121; Q0162; Q9967